=== PATIENT | female | born 1995 | race African-American/Black ===

== ENCOUNTER 2017-03-25 20:41 | Inpatient (IN) | payer MEDICAID, OTHER ==
[2017-03-25] VITALS (11 sets, daily range): BP systolic 105–148; BP diastolic 58–87; PULSE 101–112; RESP 15–16; TEMP 99.3; O2SAT 99–100
[~2017-03-25] VITALS: Ht 157.5 cm; Wt 49.0 kg
[~2017-03-25 20:41] MED LIST: INSU100V SQ; METH-703 OR; PERC5TAB12 PO
[2017-03-25] MEDS ORDERED: PROPOFOL 1000 MG/100 ML INJ 100 ML ONE (20:46)
[2017-03-25] MEDS ORDERED: fentaNYL DRIP 250 ML IV SCH (21:00)
[2017-03-25] MEDS ORDERED: PROPOFOL 1000 MG/100 ML INJ 100 ML IV SCH (21:00)
[2017-03-25] MEDS ORDERED: SODIUM CHLOR 0.9% 1000 ML INJ 1,000 ML IV ONE (21:00)
[2017-03-25] MEDS ORDERED: cefTRIAXone INJ 2,000 MG in SODIUM CHLORIDE 0.9% INJ 100 ML IV STA (21:06)
[2017-03-25] MEDS ORDERED: ETOMIDATE 20 MG/10 ML VIAL IV PUSH ONE (21:15)
[2017-03-25] MEDS ORDERED: VANCOMYCIN INJ 1,150 MG in SODIUM CHLOR 0.9% 250 ML INJ 250 ML IV ONE (21:15)
[2017-03-25] MEDS ORDERED: NALOXONE HCL 0.4 MG/ML AMP IV PUSH ONE (21:15)
[2017-03-25] MEDS ORDERED: VECURONIUM BROMIDE 10 MG VIAL IV PUSH ONE ×2 (21:15→22:30)
[2017-03-25] MEDS ORDERED: DEXAMETHASONE SOD PHOS 20 MG/5 ML VIAL IV PUSH ONE (21:15)
[2017-03-25] MEDS ORDERED: SUCCINYLCHOLINE CHLORIDE 200 MG/10 ML VIAL IV PUSH ONE (21:15)
--- NOTE | 2017-03-25 21:21 | RADRPT ---
EXAM DATE/TIME: 03/25/2017 20:58 [facility] COMPARISON: No previous studies available for comparison. INDICATIONS : Post intubation. MEDICAL HISTORY : Unobtainable. SURGICAL HISTORY : Unobtainable. ENCOUNTER: Initial ACUITY: 1 day PAIN SCORE: Non-responsive. LOCATION: Bilateral chest FINDINGS: Enteric tube is identified and the distal tip at the EG junction, side port overlies the distal esoph rachid. The lungs are clear. Osseous structures are intact. Endotracheal tube tip at the inferior elva n of the clavicles. CONCLUSION: Endotracheal tube and enteric tubes are noted as above. Roge Macias MD on March 25, 2017 at 21:19 Board Certified Radiologist. This report was verified electronically.
--- NOTE | 2017-03-25 21:23 | PD ---
HPI Chief Complaint: Altered Mental Status Time Seen by Provider: 20:56 Travel History International Travel<30 days: No Contact w/Intl Traveler<30days: No Traveled to known affect area: No History of Present Illness HPI Patient is a 21-year-old female with history of type 1 diabetes on insulin, ADHD , asthma, presents to emergency room for altered mental status. As per EMS, patient's family called as patient was last seen normal 4 days ago. Reports that she was found unresponsive in her bed and foaming at the mouth.. EMS reported a BS of 211. Reports that her GSC was a 7 on scene as she was responding to painful stimuli While in the emergency room, patient's GCS is 5. Patient appeared to respond to verbal commands, she had no verbal responses and no response to pain. Blood sugar in the emergency room was 167. Patient obtunded, unable to provide an history of present illness. Patient was given 0.4 mg of Narcan in the emergency room with no response. PFSH Past Medical History ADHD: Yes Asthma: Yes Autoimmune Disease: No Blood Disorders: No Anxiety: No Depression: No Heart Rhythm Problems: No Cancer: No Cardiovascular Problems: No Chest Pain: No Cystic Fibrosis: No Diabetes: Yes Diminished Hearing: No Genitourinary: No Headaches: Yes (now a 10 out of 0-10 scale) Hypertension: No Musculoskeletal: No Neurologic: No Psychiatric: Yes Reproductive: No Immunizations Current: No Migraines: No Seizures: No Sickle Cell Disease: No Sleep Apnea: No Thyroid Disease: No Ulcer: No : 2 Para: 1 Miscarriage: 0 : 0 Past Surgical History Abdominal Surgery: No Appendectomy: No Cardiac Surgery: No Section: Yes Cholecystectomy: No Ear Surgery: No Endocrine Surgery: No Eye Surgery: No Genitourinary Surgery: No Neurologic Surgery: No Oral Surgery: No Pacemaker: No Thoracic Surgery: No Other Surgery: Yes () Social History Alcohol Use: No Tobacco Use: No Substance Use: No Allergies-Medications (Allergen,Severity, Reaction): Coded Allergies: No Known Allergies (Verified , 03/25/17) Reported Meds & Prescriptions Reported Meds & Active Scripts Active Review of Systems ROS Limitations: Altered Mental Status, Unresponsive General / Constitutional: No: Fever Eyes: No: Visual changes HENT: No: Headaches Cardiovascular: No: Chest Pain or Discomfort Respiratory: No: Shortness of Breath Gastrointestinal: No: Abdominal Pain Genitourinary: No: Dysuria Musculoskeletal: No: Pain Skin: No Rash Neurologic: No: Weakness Psychiatric: No: Depression Endocrine: No: Polydipsia Hematologic/Lymphatic: No: Easy Bruising Physical Exam Exam Limitations: Altered Mental Status Narrative GENERAL: Patient in severe distress, GCS of 5 SKIN: Focused skin assessment warm/dry. HEAD: Atraumatic. Normocephalic. EYES: Pupils equal and round. No scleral icterus. No injection or drainage. ENT: No nasal bleeding or discharge. Mucous membranes pink and moist. Patient foaming in the mouth, drooling on exam NECK: Trachea midline. No JVD. CARDIOVASCULAR: Regular rate and rhythm. No murmur appreciated. RESPIRATORY: No accessory muscle use. Clear to auscultation. Breath sounds equal bilaterally. GASTROINTESTINAL: Abdomen soft, non-tender, nondistended. Hepatic and splenic margins not palpable. MUSCULOSKELETAL: No obvious deformities. No clubbing. No cyanosis. No edema. NEUROLOGICAL: Awake, responds to verbal commands, no verbal responses from patient, patient does not respond to painful stimuli. GCS 5 Data Data Last Documented VS Vital Signs Date Time Temp Pulse Resp B/P Pulse Ox O2 Delivery O2 Flow Rate FiO2 03/25/17 21:42 112 16 148/87 100 Ventilator 03/25/17 21:42 70 03/25/17 20:50 99.3 Orders Propofol 1000 Mg/100 Ml Inj (Diprivan 10 (03/25/17 20:46) Chest, Single Ap (03/25/17 20:56) Electrocardiogram (03/25/17 20:57) Complete Blood Count With Diff (03/25/17 20:57) Comprehensive Metabolic Panel (03/25/17 20:57) Beta Hcg (Quant/Titer) (03/25/17 20:57) Prothrombin Time / Inr (Pt) (03/25/17 20:57) Lactic Acid Sepsis Protocol (03/25/17 20:57) Magnesium (Mg) (03/25/17 20:57) Phosphorus (Po4) (03/25/17 20:57) Lipase (03/25/17 20:57) Ckmb (Isoenzyme) Profile (03/25/17 20:57) Troponin I (03/25/17 20:57) Urinalysis - C+S If Indicated (03/25/17 20:57) Influenzae A/B Antigen (03/25/17 20:57) Blood Culture (03/25/17 20:57) Arterial Blood Gas (Abg) (03/25/17 20:57) Courtney-Gastric Tube Insert/Mon (03/25/17 20:58) Continue Black/Suprapubic Cath (03/25/17 20:58) Sodium Chlor 0.9% 1000 Ml Inj (Ns 1000 M (03/25/17 21:00) Ct Brain W/O Iv Contrast(Rout) (03/25/17 20:59) Bedside Glucose PAULA.AC&HS (03/25/17 20:59) Propofol 1000 Mg/100 Ml Inj (Diprivan 10 (03/25/17 21:00) Neurological Rass Scale Q30MX2,Q2HX4,Q4H (03/25/17 20:59) Fentanyl Drip (Fentanyl Drip) (03/25/17 21:00) Etomidate Inj (Amidate Inj) (03/25/17 21:15) Succinylcholine Inj (Quelicin Inj) (03/25/17 21:15) Drug Screen, Random Urine (03/25/17 21:02) Salicylates (Aspirin) (03/25/17 21:02) Act Partial Throm Time (Ptt) (03/25/17 21:03) Bacterial Antigen Csf (03/25/17 21:04) Csf Hsv I/Ii Dna,Pcr (03/25/17 21:04) Csf Cell Count + Differential (03/25/17 21:04) Glucose, Csf (03/25/17 21:04) Total Protein, Csf (03/25/17 21:04) Csf Culture And Gram Stain (03/25/17 21:04) Vecuronium 10 Mg Inj (Norcuron 10 Mg Inj (03/25/17 21:15) Dexamethasone Inj (Decadron Inj) (03/25/17 21:15) Ceftriaxone Inj (Rocephin Inj) (03/25/17 21:06) Vancomycin Inj (Vancomycin Inj) (03/25/17 21:15) Naloxone Inj (Narcan Inj) (03/25/17 21:15) Fentanyl Drip (Fentanyl Drip) (03/25/17 21:55) Tylenol (Acetaminophen) (03/25/17 20:50) Alcohol (Ethanol) (03/25/17 20:50) Beta Hydroxybutyrate (Acetone) (03/25/17 20:50) Potassium Phosphate Inj (Potassium Phosp (03/25/17 22:15) Admit Order (Ed Use Only) (03/25/17 22:15) Midazolam Inj (Versed Inj) (03/25/17 22:15) Labs Laboratory Tests Test 03/25/17 20:50 White Blood Count 4.5 TH/MM3 Red Blood Count 4.50 MIL/MM3 Hemoglobin 13.3 GM/DL Hematocrit 40.5 % Mean Corpuscular Volume 89.9 FL Mean Corpuscular Hemoglobin 29.5 PG Mean Corpuscular Hemoglobin 32.8 % Concent Red Cell Distribution Width 13.8 % Platelet Count 304 TH/MM3 Mean Platelet Volume 8.3 FL Neutrophils (%) (Auto) 71.1 % Lymphocytes (%) (Auto) 23.0 % Monocytes (%) (Auto) 4.8 % Eosinophils (%) (Auto) 0.0 % Basophils (%) (Auto) 1.1 % Neutrophils # (Auto) 3.2 TH/MM3 Lymphocytes # (Auto) 1.0 TH/MM3 Monocytes # (Auto) 0.2 TH/MM3 Eosinophils # (Auto) 0.0 TH/MM3 Basophils # (Auto) 0.0 TH/MM3 CBC Comment DIFF FINAL Differential Comment Prothrombin Time 10.5 SEC Prothromb Time International 1.0 RATIO Ratio Activated Partial 20.4 SEC Thromboplast Time Urine Color YELLOW Urine Turbidity CLEAR Urine pH 5.5 Urine Specific [place] 1.027 Urine Protein 30 mg/dL Urine Glucose (UA) 1000 mg/dL Urine Ketones 150 mg/dL Urine Occult Blood SMALL Urine Nitrite NEG Urine Bilirubin NEG Urine Urobilinogen 2.0 MG/DL Urine Leukocyte Esterase NEG Urine RBC 2 /hpf Urine WBC 1 /hpf Urine Squamous Epithelial <1 /hpf Cells Urine Hyaline Casts 7 /lpf Urine Mucus FEW /lpf Microscopic Urinalysis Comment CATH-CULT NOT IND Sodium Level 142 MEQ/L Potassium Level 3.6 MEQ/L Chloride Level 109 MEQ/L Carbon Dioxide Level 15.0 MEQ/L Anion Gap 18 MEQ/L Blood Urea Nitrogen 14 MG/DL Creatinine 0.99 MG/DL Estimat Glomerular Filtration 85 ML/MIN Rate Random Glucose 180 MG/DL Lactic Acid Level 2.0 mmol/L Calcium Level 8.4 MG/DL Phosphorus Level 1.6 MG/DL Magnesium Level 1.6 MG/DL Total Bilirubin 0.5 MG/DL Aspartate Amino Transf 11 U/L (AST/SGOT) Alanine Aminotransferase 23 U/L (ALT/SGPT) Alkaline Phosphatase 95 U/L Total Creatine Kinase 30 U/L Troponin I LESS THAN 0.02 NG/ML Total Protein 6.5 GM/DL Albumin 3.3 GM/DL Lipase 45 U/L Human Chorionic Gonadotropin, LESS THAN 1 Quant MIU/ML MDM Medical Decision Making Medical Screen Exam Complete: Yes Emergency Medical Condition: Yes Interpretation(s) EKG at 2138: Sinus tach at 107bpm, qt/qtc: 359/422, no acute st or t wave changes Vital Signs Date Time Temp Pulse Resp B/P Pulse Ox O2 Delivery O2 Flow Rate FiO2 03/25/17 20:50 99.3 03/25/17 20:44 101 15 136/87 99 Laboratory Tests Test 03/25/17 20:50 White Blood Count 4.5 TH/MM3 (4.0-11.0) Red Blood Count 4.50 MIL/MM3 (4.00-5.30) Hemoglobin 13.3 GM/DL (11.6-15.3) Hematocrit 40.5 % (35.0-46.0) Mean Corpuscular Volume 89.9 FL (80.0-100.0) Mean Corpuscular Hemoglobin 29.5 PG (27.0-34.0) Mean Corpuscular Hemoglobin 32.8 % Concent (32.0-36.0) Red Cell Distribution Width 13.8 % (11.6-17.2) Platelet Count 304 TH/MM3 (150-450) Mean Platelet Volume 8.3 FL (7.0-11.0) Neutrophils (%) (Auto) 71.1 % (16.0-70.0) Lymphocytes (%) (Auto) 23.0 % (9.0-44.0) Monocytes (%) (Auto) 4.8 % (0.0-8.0) Eosinophils (%) (Auto) 0.0 % (0.0-4.0) Basophils (%) (Auto) 1.1 % (0.0-2.0) Neutrophils # (Auto) 3.2 TH/MM3 (1.8-7.7) Lymphocytes # (Auto) 1.0 TH/MM3 (1.0-4.8) Monocytes # (Auto) 0.2 TH/MM3 (0-0.9) Eosinophils # (Auto) 0.0 TH/MM3 (0-0.4) Basophils # (Auto) 0.0 TH/MM3 (0-0.2) CBC Comment DIFF FINAL Differential Comment Prothrombin Time 10.5 SEC (9.8-11.6) Prothromb Time International 1.0 RATIO Ratio Activated Partial 20.4 SEC Thromboplast Time (24.3-30.1) Urine Color YELLOW (YELLW/STRAW) Urine Turbidity CLEAR (CLEAR) Urine pH 5.5 (5.0-8.5) Urine Specific [place] 1.027 (1.002-1.035) Urine Protein 30 mg/dL (NEG-TRACE) Urine Glucose (UA) 1000 mg/dL (NEG) Urine Ketones 150 mg/dL (NEG) Urine Occult Blood SMALL (NEG) Urine Nitrite NEG (NEG) Urine Bilirubin NEG (NEG) Urine Urobilinogen 2.0 MG/DL (LESS THAN 2.0) Urine Leukocyte Esterase NEG (NEG) Urine RBC 2 /hpf (0-3) Urine WBC 1 /hpf (0-5) Urine Squamous Epithelial <1 /hpf (0-5) Cells Urine Hyaline Casts 7 /lpf (RARE) Urine Mucus FEW /lpf (OCC) Microscopic Urinalysis Comment CATH-CULT NOT IND Sodium Level 142 MEQ/L (136-145) Potassium Level 3.6 MEQ/L (3.5-5.1) Chloride Level 109 MEQ/L (98-107) Carbon Dioxide Level 15.0 MEQ/L (21.0-32.0) Anion Gap 18 MEQ/L (5-15) Blood Urea Nitrogen 14 MG/DL (7-18) Creatinine 0.99 MG/DL (0.50-1.00) Estimat Glomerular Filtration 85 ML/MIN (>89) Rate Random Glucose 180 MG/DL (74-106) Lactic Acid Level 2.0 mmol/L (0.4-2.0) Calcium Level 8.4 MG/DL (8.5-10.1) Phosphorus Level 1.6 MG/DL (2.5-4.9) Magnesium Level 1.6 MG/DL (1.5-2.5) Total Bilirubin 0.5 MG/DL (0.2-1.0) Aspartate Amino Transf 11 U/L (15-37) (AST/SGOT) Alanine Aminotransferase 23 U/L (10-53) (ALT/SGPT) Alkaline Phosphatase 95 U/L (45-117) Total Creatine Kinase 30 U/L (26-192) Troponin I LESS THAN 0.02 NG/ML (0.02-0.05) Total Protein 6.5 GM/DL (6.4-8.2) Albumin 3.3 GM/DL (3.4-5.0) Lipase 45 U/L (73-393) Human Chorionic Gonadotropin, LESS THAN 1 Quant MIU/ML (0-5) Last Impressions Head CT 03/25/172058 Signed Impressions: Service Date/Time: Saturday, March 25, 2017 21:23 - CONCLUSION: Normal examination. Roge Macias MD Chest X-Ray 03/25/172055 Signed Impressions: Service Date/Time: Saturday, March 25, 2017 20:58 - CONCLUSION: Endotracheal tube and enteric tubes are noted as above. Roge Macias MD Differential Diagnosis Differential includes DKA, encephalitis, meningitis, drug abuse, electrolyte abnormality, seizure Narrative Course 21-year-old female who presents to emergency room with complaints of altered mental status. She initially presented to the emergency room with a GCS of 5, patient was intubated for airway protection. Patient has known history of diabetes mellitus type 1, blood glucose in the ER was 167. Patient unable to provide any history at this time. Patient was given 0.4mg of narcan with no response. GCS 5 - patient intubated for airway protection Patient was sedated using RSI 5, patient was given etomidate and succinylcholine. Patient was bolus of propofol for sedation, propofol drip was initiated for sedation. Patient was still biting at the ETT, patient was given 10mg of vecuronium along with propofol as Fentyl gtt was ordered and is currently being prepared by pharmacy. CT of the head ordered for evaluation of altered mental status. Lab work including blood cultures as well as lactic acid ordered. Patient was given antibiotics for possible meningitis - dexamethasone, vanco and rocephin ordered. Will perform LP after CT of head Last Impressions Head CT 03/25/172058 Signed Impressions: Service Date/Time: Saturday, March 25, 2017 21:23 - CONCLUSION: Normal examination. Roge Macias MD Chest X-Ray 03/25/172055 Signed Impressions: Service Date/Time: Saturday, March 25, 2017 20:58 - CONCLUSION: Endotracheal tube and enteric tubes are noted as above. Roge Macias MD Laboratory Tests Test 03/25/17 20:50 White Blood Count 4.5 TH/MM3 (4.0-11.0) Red Blood Count 4.50 MIL/MM3 (4.00-5.30) Hemoglobin 13.3 GM/DL (11.6-15.3) Hematocrit 40.5 % (35.0-46.0) Mean Corpuscular Volume 89.9 FL (80.0-100.0) Mean Corpuscular Hemoglobin 29.5 PG (27.0-34.0) Mean Corpuscular Hemoglobin 32.8 % Concent (32.0-36.0) Red Cell Distribution Width 13.8 % (11.6-17.2) Platelet Count 304 TH/MM3 (150-450) Mean Platelet Volume 8.3 FL (7.0-11.0) Neutrophils (%) (Auto) 71.1 % (16.0-70.0) Lymphocytes (%) (Auto) 23.0 % (9.0-44.0) Monocytes (%) (Auto) 4.8 % (0.0-8.0) Eosinophils (%) (Auto) 0.0 % (0.0-4.0) Basophils (%) (Auto) 1.1 % (0.0-2.0) Neutrophils # (Auto) 3.2 TH/MM3 (1.8-7.7) Lymphocytes # (Auto) 1.0 TH/MM3 (1.0-4.8) Monocytes # (Auto) 0.2 TH/MM3 (0-0.9) Eosinophils # (Auto) 0.0 TH/MM3 (0-0.4) Basophils # (Auto) 0.0 TH/MM3 (0-0.2) CBC Comment DIFF FINAL Differential Comment Prothrombin Time 10.5 SEC (9.8-11.6) Prothromb Time International 1.0 RATIO Ratio Activated Partial 20.4 SEC Thromboplast Time (24.3-30.1) Urine Color YELLOW (YELLW/STRAW) Urine Turbidity CLEAR (CLEAR) Urine pH 5.5 (5.0-8.5) Urine Specific [place] 1.027 (1.002-1.035) Urine Protein 30 mg/dL (NEG-TRACE) Urine Glucose (UA) 1000 mg/dL (NEG) Urine Ketones 150 mg/dL (NEG) Urine Occult Blood SMALL (NEG) Urine Nitrite NEG (NEG) Urine Bilirubin NEG (NEG) Urine Urobilinogen 2.0 MG/DL (LESS THAN 2.0) Urine Leukocyte Esterase NEG (NEG) Urine RBC 2 /hpf (0-3) Urine WBC 1 /hpf (0-5) Urine Squamous Epithelial <1 /hpf (0-5) Cells Urine Hyaline Casts 7 /lpf (RARE) Urine Mucus FEW /lpf (OCC) Microscopic Urinalysis Comment CATH-CULT NOT IND Sodium Level 142 MEQ/L (136-145) Potassium Level 3.6 MEQ/L (3.5-5.1) Chloride Level 109 MEQ/L (98-107) Carbon Dioxide Level 15.0 MEQ/L (21.0-32.0) Anion Gap 18 MEQ/L (5-15) Blood Urea Nitrogen 14 MG/DL (7-18) Creatinine 0.99 MG/DL (0.50-1.00) Estimat Glomerular Filtration 85 ML/MIN (>89) Rate Random Glucose 180 MG/DL (74-106) Lactic Acid Level 2.0 mmol/L (0.4-2.0) Calcium Level 8.4 MG/DL (8.5-10.1) Phosphorus Level 1.6 MG/DL (2.5-4.9) Magnesium Level 1.6 MG/DL (1.5-2.5) Total Bilirubin 0.5 MG/DL (0.2-1.0) Aspartate Amino Transf 11 U/L (15-37) (AST/SGOT) Alanine Aminotransferase 23 U/L (10-53) (ALT/SGPT) Alkaline Phosphatase 95 U/L (45-117) Total Creatine Kinase 30 U/L (26-192) Troponin I LESS THAN 0.02 NG/ML (0.02-0.05) Total Protein 6.5 GM/DL (6.4-8.2) Albumin 3.3 GM/DL (3.4-5.0) Lipase 45 U/L (73-393) Human Chorionic Gonadotropin, LESS THAN 1 Quant MIU/ML (0-5) LP performed, patient with clear CSF fluid - CSF pending Case reviewed with Dr. Macdonald who accepts pt to service Critical Care Narrative Aggregate critical care time was 45 minutes. Time to perform other separately billable procedures was not included in the critical care time. My time did not include minutes spent treating any other patients simultaneously or on activities that did not directly contribute to the patient's treatment. The services I provided to this patient were to treat and/or prevent clinically significant deterioration that could result in: , decompensation, deterioration I provided critical care services requiring my management, as noted below: Chart data review, documentation time, medication orders and management, vital sign assessments/reviewing monitor data, ordering and reviewing lab tests, ordering and interpreting/reviewing x-rays and diagnostic studies, care of the patient and discussion of the patient with the admitting physicians. Procedures Procedure Narrative After the risks and benefits were discussed the following procedure was performed: INTUBATION: The patient was put in optimal position for the procedure. Rapid sequence intubation was initiated by me using 20 milligrams of etomidate IV and 100 milligrams of succinylcholine IV. The patient was intubated with a 7.5 cuffed endotracheal tube. Tube placement was confirmed by visualization of the tube and balloon passing through the cords, capnometry and subsequent chest x-ray. Breath sounds were equal and well aerated bilaterally postintubation. No breath sounds over stomach. Patient tolerated procedure well. LUMBAR PUNCTURE: The patient was placed in the left lateral decubitus position. The lumbar area of the back was prepped with Betadine and sterilely draped. The L3 -- L4 interspace was infiltrated with 1% lidocaine plain. Number 20 gauge LP needle was placed in the interspace. Opening pressure deferred. Number 5 milliliters of clear CSF were obtained. Patient tolerated procedure well. Diagnosis Primary Impression: Altered mental status, unspecified Additional Impression: Ventilator dependence Admitting Information Admitting Physician Requests: Yuly Sosa DO Mar 25, 2017 21:23
[2017-03-25 21:24] LABS: AUTOMATED NEUTROPHIL # 3.2 TH/MM3 (1.8-7.7); BASOPHIL % 1.1 % (0.0-2.0); HEMATOCRIT 40.5 % (35.0-46.0); HEMO FLAGS DIFF FINAL; MEAN CELL VOLUME 89.9 FL (80.0-100.0); MEAN CORPUSCULAR HEMOGLOBIN 29.5 PG (27.0-34.0); MEAN CORPUSCULAR HGB CONC 32.8 % (32.0-36.0); MONO % 4.8 % (0.0-8.0); NEUT % 71.1 % (16.0-70.0); PLATELET COUNT 304 TH/MM3 (150-450); RED CELL DISTRIBUTION WIDTH 13.8 % (11.6-17.2); WHITE BLOOD COUNT 4.5 TH/MM3 (4.0-11.0)
[2017-03-25 21:26] LABS: BLOOD, URINE SMALL (NEG); GLUCOSE,URINE 1000 mg/dL (NEG); HYALINE CAST, URINE 7 /lpf (RARE); KETONE, URINE 150 mg/dL (NEG); MUCUS URINE FEW /lpf (OCC); NITRITE,URINE NEG (NEG); PH, URINE 5.5 (5.0-8.5); SQUAMOUS EPITHELIAL CELL URINE <1 /hpf (0-5); URINE COLOR YELLOW (YELLW/STRAW)
[2017-03-25 21:29] LABS: COMMENT (UR) CATH-CULT NOT IND; CULTURE IF INDICATED CATH CULTURE NOT IND
[2017-03-25 21:30] LABS: PROTHROMBIN TIME - PATIENT 10.5 SEC (9.8-11.6)
--- NOTE | 2017-03-25 21:41 | RADRPT ---
EXAM DATE/TIME: 03/25/2017 21:23 [facility] COMPARISON: No previous studies available for comparison. INDICATIONS : Unresponsive. RADIATION DOSE: 32.14 CTDIvol (mGy) MEDICAL HISTORY : Non-responsive. SURGICAL HISTORY : Non-responsive. ENCOUNTER: Initial ACUITY: 1 day PAIN SCALE: Non-responsive LOCATION: cranial TECHNIQUE: Multiple contiguous axial images were obtained of the head. Using automated exposure control and adj ustment of the mA and/or kV according to patient size, radiation dose was kept as low as reasonably a chievable to obtain optimal diagnostic quality images. DICOM format image data is available electro nically for review and comparison. FINDINGS: CEREBRUM: The ventricles are normal for age. No evidence of midline shift, mass lesion, hemorrhage or acute in farction. No extra-axial fluid collections are seen. POSTERIOR FOSSA: The cerebellum and brainstem are intact. The 4th ventricle is midline. The cerebellopontine angle i s unremarkable. EXTRACRANIAL: The visualized portion of the orbits is intact. SKULL: The calvaria is intact. No evidence of skull fracture. CONCLUSION: Normal examination. Roge Macias MD on March 25, 2017 at 21:39 Board Certified Radiologist. This report was verified electronically.
[2017-03-25 21:44] LABS: ANION GAP 18 MEQ/L (5-15); BLOOD UREA NITROGEN 14 MG/DL (7-18); CHLORIDE 109 MEQ/L (98-107); GLOMERULAR FILTRATION RATE 85 ML/MIN (>89); MAGNESIUM 1.6 MG/DL (1.5-2.5); POTASSIUM 3.6 MEQ/L (3.5-5.1); SODIUM (NA) 142 MEQ/L (136-145)
[2017-03-25 21:45] LABS: AST (GOT) 11 U/L (15-37)
[2017-03-25 21:48] LABS: APTT (PATIENT) 20.4 SEC (24.3-30.1)
[2017-03-25 21:50] LABS: ALKALINE PHOSPHATASE 95 U/L (45-117); ALT (GPT) 23 U/L (10-53); BETA HCG QUANT LESS THAN 1 MIU/ML (0-5); TOTAL BILIRUBIN ADULT 0.5 MG/DL (0.2-1.0)
[2017-03-25] MEDS ORDERED: fentaNYL DRIP 250 ML ONE (21:55)
[2017-03-25 21:56] LABS: CREATINE KINASE 30 U/L (26-192)
[2017-03-25] MEDS ORDERED: MIDAZOLAM HCL 2 MG/2 ML VIAL IV PUSH ONE (22:15)
[2017-03-25] MEDS ORDERED: POTASSIUM PHOSPHATE INJ 30 MMOL in SODIUM CHLOR 0.9% 250 ML INJ 250 ML IV ONE (22:15)
[2017-03-25 22:16] LABS: ACETAMINOPHEN LESS THAN 2.0 MCG/ML (10.0-30.0)
[2017-03-25 22:26] LABS: BETA-HYDROXYBUTYRATE 6.38 MMOL/L (0.00-0.39)
[2017-03-25 22:32] LABS: AMPHETAMINE, URINE NEG (NEG); BARBITURATES, URINE NEG (NEG); COCAINE, URINE NEG (NEG)
[2017-03-25] MEDS: SODIUM CHLOR 0.9% 1000 ML INJ 1,000 ML IV SCH ×2 (22:50→23:50)
[2017-03-25] MEDS ORDERED: INSULIN REGULAR (IV INFUSION) 100 UNITS in SODIUM CHLORIDE 0.9% INJ 99 ML IV SCH (23:00)
[2017-03-25] MEDS ORDERED: MISCELLANEOUS NURSING INFORMATION XX SCH (23:00)
[2017-03-25] MEDS ORDERED: CHLORHEXIDINE GLUCONATE 2 % 1 PACK (2 CLOTHS) TOP PRN (23:00)
[2017-03-25] MEDS ORDERED: POTASSIUM CHLOR 20 MEQ PREMIX 100 ML IV PRN ×6 (23:00)
[2017-03-25] MEDS ORDERED: SODIUM PHOSPHATE INJ 15 MMOL in SODIUM CHLORIDE 0.9% INJ 100 ML IV PRN (23:00)
[2017-03-25] MEDS ORDERED: POTASSIUM CHLOR 40 MEQ PREMIX 100 ML IV PRN ×2 (23:00)
[2017-03-25] MEDS ORDERED: SODIUM BICARBONATE 8.4% SOLN 50 MEQ/50 ML VIAL IV PRN ×2 (23:00)
--- NOTE | 2017-03-25 23:09 | HHI.HP ---
HPI Service Critical Care Medicine Primary Care Physician No Primary Care Physician Admission Diagnosis Vent Dependence Respiratory Failure, Altered Mental Status Diagnosis: Travel History International Travel<30 Days: No Contact w/Intl Traveler <30 Da: No Traveled to Known Affected Are: No History of Present Illness 21-year-old female with history of type 1 diabetes on insulin, ADHD, asthma, presents to emergency room for altered mental status. As per EMS, patient's family called as patient was last seen normal 4 days ago. Reports that she was found unresponsive in her bed and foaming at the mouth.. EMS reported a BS of 211. Reports that her GSC was a 7 on scene as she was responding to painful stimuli. In the emergency department patient's GCS was 5 and she was intubated for an airway protection by ED attending. Review of Systems ROS Unobtainable patient is sedated and intubated Past Family Social History Allergies: Coded Allergies: No Known Allergies (Verified , 03/25/17) Past Medical History Type 1 diabetes mellitus since age of 6 Asthma ADHD Past Surgical History 8 years ago Reported Medications Reported Meds & Active Scripts Active Active Ordered Medications Current Medications Medications (Trade) Dose Ordered Sig/Justyn Route PRN Reason Start Time Stop Time Status Last Admin Dose Admin Propofol 100 ml @ 0 mls/hr TITRATE IV 03/25/17 21:00 Fentanyl Citrate 250 ml @ 0 mls/hr TITRATE IV 03/25/17 21:00 Sodium Chloride 1,000 ml @ 250 mls/hr Q4H IV 03/25/17 22:50 Dextrose/Sodium Chloride 1,000 ml @ 200 mls/hr Q5H IV 03/25/17 22:50 03/26/17 03:50 Insulin Human Regular 100 units/ Sodium Chloride 100 ml @ 0 mls/hr TITRATE IV 03/25/17 23:00 Potassium Chloride 100 ml @ 100 mls/hr Q1H PRN IV SEE LABEL COMMENTS 03/25/17 23:00 Potassium Chloride 100 ml @ 50 mls/hr Q2H PRN IV SEE LABEL COMMENTS 03/25/17 23:00 Potassium Chloride 100 ml @ 100 mls/hr Q1H PRN IV SEE LABEL COMMENTS 03/25/17 23:00 Potassium Chloride 100 ml @ 100 mls/hr Q1H PRN IV SEE LABEL COMMENTS 03/25/17 23:00 Potassium Chloride 100 ml @ 50 mls/hr Q2H PRN IV SEE LABEL COMMENTS 03/25/17 23:00 Potassium Chloride 100 ml @ 50 mls/hr Q2H PRN IV SEE LABEL COMMENTS 03/25/17 23:00 Potassium Chloride 100 ml @ 50 mls/hr Q2H PRN IV SEE LABEL COMMENTS 03/25/17 23:00 Potassium Chloride (KCl 20 Meq Premix Inj) 100 ml @ 50 mls/hr Q2H PRN IV SEE LABEL COMMENTS 03/25/17 23:00 Sodium Bicarbonate (Sodium Bicarbonate 8.4% Inj) 100 meq UNSCH PRN IV SEE LABEL COMMENTS 03/25/17 23:00 Sodium Bicarbonate 50 meq 50 meq UNSCH PRN IV SEE LABEL COMMENTS 03/25/17 23:00 Sodium Phosphate/ Sodium Chloride (Sodium Phosphate Inj/NS Inj) 105 ml @ 25 mls/hr UNSCH PRN IV SEE LABEL COMMENTS 03/25/17 23:00 Miscellaneous Information 1 Q361D XX 03/25/17 23:00 Chlorhexidine Gluconate (Chlorhexidine 2% Cloth) 3 pack Taper DAILY@04 TOP 03/26/17 04:00 03/22/18 03:59 03/26/17 04:00 Chlorhexidine Gluconate (Chlorhexidine 2% Cloth) 3 pack UNSCH PRN TOP HYGIENIC CARE 03/25/17 23:00 Acetaminophen (Tylenol) 650 mg Q4H PRN PO pain 03/26/17 04:00 03/26/17 04:14 Family History Unobtainable Social History Unobtainable Physical Exam Vital Signs Vital Signs Date Time Temp Pulse Resp B/P Pulse Ox O2 Delivery O2 Flow Rate FiO2 03/25/17 23:06 110 105/58 03/25/17 22:39 112 16 118/67 100 Ventilator 03/25/17 22:32 110 16 123/64 100 Ventilator 03/25/17 21:50 100 70 03/25/17 21:42 112 16 148/87 100 Ventilator 03/25/17 21:42 70 03/25/17 21:15 110 16 134/73 100 Ventilator 03/25/17 20:50 99.3 03/25/17 20:44 101 15 136/87 99 Physical Exam GENERAL: Well-nourished, well-developed patient. Sedated and intubated SKIN: Warm and dry. HEAD: Normocephalic. EYES: No scleral icterus. No injection or drainage. NECK: Supple, trachea midline. No JVD or lymphadenopathy. CARDIOVASCULAR: Regular rate and rhythm without murmurs, gallops, or rubs. RESPIRATORY: Breath sounds equal bilaterally. No accessory muscle use. GASTROINTESTINAL: Abdomen soft, non-tender, nondistended. MUSCULOSKELETAL: No cyanosis, or edema. BACK: Nontender without obvious deformity. No CVA tenderness. EXTREMITIES: No clubbing cyanosis or edema Laboratory Laboratory Tests Test 03/25/17 03/25/17 20:50 21:50 White Blood Count 4.5 Red Blood Count 4.50 Hemoglobin 13.3 Hematocrit 40.5 Mean Corpuscular Volume 89.9 Mean Corpuscular Hemoglobin 29.5 Mean Corpuscular Hemoglobin 32.8 Concent Red Cell Distribution Width 13.8 Platelet Count 304 Mean Platelet Volume 8.3 Neutrophils (%) (Auto) 71.1 Lymphocytes (%) (Auto) 23.0 Monocytes (%) (Auto) 4.8 Eosinophils (%) (Auto) 0.0 Basophils (%) (Auto) 1.1 Neutrophils # (Auto) 3.2 Lymphocytes # (Auto) 1.0 Monocytes # (Auto) 0.2 Eosinophils # (Auto) 0.0 Basophils # (Auto) 0.0 CBC Comment DIFF FINAL Differential Comment Prothrombin Time 10.5 Prothromb Time International 1.0 Ratio Activated Partial 20.4 Thromboplast Time Urine Color YELLOW Urine Turbidity CLEAR Urine pH 5.5 Urine Specific [place] 1.027 Urine Protein 30 Urine Glucose (UA) 1000 Urine Ketones 150 Urine Occult Blood SMALL Urine Nitrite NEG Urine Bilirubin NEG Urine Urobilinogen 2.0 Urine Leukocyte Esterase NEG Urine RBC 2 Urine WBC 1 Urine Squamous Epithelial <1 Cells Urine Hyaline Casts 7 Urine Mucus FEW Microscopic Urinalysis Comment CATH-CULT NOT IND Sodium Level 142 Potassium Level 3.6 Chloride Level 109 Carbon Dioxide Level 15.0 Anion Gap 18 Blood Urea Nitrogen 14 Creatinine 0.99 Estimat Glomerular Filtration 85 Rate Random Glucose 180 Lactic Acid Level 2.0 Calcium Level 8.4 Phosphorus Level 1.6 Magnesium Level 1.6 Total Bilirubin 0.5 Aspartate Amino Transf 11 (AST/SGOT) Alanine Aminotransferase 23 (ALT/SGPT) Alkaline Phosphatase 95 Total Creatine Kinase 30 Troponin I LESS THAN 0.02 Total Protein 6.5 Albumin 3.3 Lipase 45 Human Chorionic Gonadotropin, LESS THAN 1 Quant Urine Opiates Screen NEG Acetaminophen Level LESS THAN 2.0 Urine Barbiturates Screen NEG Urine Amphetamines Screen NEG Urine Benzodiazepines Screen NEG Urine Cocaine Screen NEG Urine Cannabinoids Screen NEG Ethyl Alcohol Level LESS THAN 3 B-Hydroxybutyrate 6.38 CSF Glucose 179 CSF Total Protein 80.3 Date/Time Procedure Status Source Growth 03/25/17 22:10 Aerobic Blood Culture Received Blood Peripheral Pending 03/25/17 22:10 Anaerobic Blood Culture Received Blood Peripheral Pending 03/25/17 21:50 Gram Stain - Final Resulted Cerebral Spinal Fluid Lumbar Puncture 03/25/17 21:50 CSF Culture Resulted Cerebral Spinal Fluid Lumbar Puncture Pending Result Diagram: 03/25/17204903/25/172049 Imaging Last [address] 03/25/172058 Signed Impressions: Service Date/Time: Saturday, March 25, 2017 21:23 - CONCLUSION: Normal examination. Roge Macias MD Chest X-Ray 03/25/172055 Signed Impressions: Service Date/Time: Saturday, March 25, 2017 20:58 - CONCLUSION: Endotracheal tube and enteric tubes are noted as above. Roge Macias MD Assessment and Plan Assessment and Plan Respiratory failure - Intubated for an airway protection - SBT and weaning trial when altered mental status improves - DuoNeb when necessary - Chest x-ray and ABG a.m. Altered mental status - CT head negative - Urine drug screen - Neuro checks in the ICU Diabetes mellitus - Insulin drip protocol - Transition to long-acting insulin subcutaneous sliding scale Asthma - No exacerbation - DuoNeb's when necessary ADHD - Psych consult when extubated DVT GI prophylaxis - Subcutaneous heparin Pepcid - Teds and SCDs Critical Care: The total critical care time was 35 minutes. Time to perform other separately billable procedures was not included in the critical care time. Mark Macdonald MD Mar 25, 2017 23:09
[2017-03-25 23:38] LABS: CSF LYMPHOCYTES 61 %; CSF MONOCYTES 39 %; CSF NEUTROPHILS 0 %; GROSS BLOOD TUBE #1 TRACE (0); GROSS BLOOD TUBE #2 0 (0); GROSS BLOOD TUBE #3 0 (0); GROSS BLOOD TUBE #4 0 (0); SUPERNATE COLOR TUBE #1 CLEAR (CLEAR); SUPERNATE COLOR TUBE #2 CLEAR (CLEAR); SUPERNATE COLOR TUBE #3 CLEAR (CLEAR); SUPERNATE COLOR TUBE #4 CLEAR (CLEAR); VOLUME TUBE # 1 1.2 ML; VOLUME TUBE # 2 1.2 ML; VOLUME TUBE # 3 0.9 ML; WBC TUBE #4 5 /MM3 (0-10)
[2017-03-26] VITALS (33 sets, daily range): BP systolic 96–130; BP diastolic 51–76; PULSE 90–128; RESP 17–92; TEMP 98.4–99.4; O2SAT 97–100
[2017-03-26] MEDS: SODIUM CHLOR 0.9% 1000 ML INJ 1,000 ML IV SCH ×5 (00:58→14:50)
[2017-03-26 01:13] LABS: BLOOD GAS CARBOXYHEMOGLOBIN 1.1 % (0-4); BLOOD GAS HCO3 13 mmol/L (22-26); BLOOD GAS METHEMOGLOBIN 0.6 % (0-2); BLOOD GAS O2 HGB SATURATION 98 % (90-100); BLOOD GAS OXYGEN CONTENT 18.3 Vol % (12.0-20.0); BLOOD GAS PCO2 29 mmHg (38-42); BLOOD GAS PO2 344 mmHG (61-120); BLOOD GAS TOTAL HGB 12.7 G/DL (12.0-16.0); TEMP CORR TO 98.6
[2017-03-26 01:14] LABS: CRITICAL VALUE YES; DRAW SITE LT RADIAL; FIO2 70 %; NUMBER OF ARTERIAL PUNCTURES 1; OXYGEN DEVICE VENTILATOR; STAT YES; ULNAR PULSE PRESENT; VENT SETTINGS AC/16/450/PEEP5
[2017-03-26] MEDS: DEXT 5%-NACL 0.9% 1000 ML INJ 1,000 ML IV SCH ×5 (01:24→17:09)
[2017-03-26] MEDS: CHLORHEXIDINE GLUCONATE 2 % 1 PACK (2 CLOTHS) TOP SCH (04:00)
[2017-03-26] MEDS: ACETAMINOPHEN 325 MG TAB PO PRN (04:14)
[2017-03-26 06:08] LABS: BICARBONATE 11.5 MEQ/L (21.0-32.0); MAGNESIUM 1.6 MG/DL (1.5-2.5)
[2017-03-26] MEDS: diphenhydrAMINE HCL 50 MG/ML VIAL IV PUSH PRN ×2 (08:38→15:37)
--- NOTE | 2017-03-26 08:42 | HHI.CCPN ---
Subjective Remarks/Hospital Course Hospital Course: 21-year-old female with history of type 1 diabetes on insulin, ADHD, asthma, presents to emergency room for altered mental status. As per EMS, patient's family called as patient was last seen normal 4 days ago. Reports that she was found unresponsive in her bed and foaming at the mouth.. EMS reported a BS of 211. Reports that her GSC was a 7 on scene as she was responding to painful stimuli. In the emergency department patient's GCS was 5 and she was intubated for an airway protection by ED attending. Subjective: 03/26: patient extubated early this morning and her mental status is back to baseline. CSF NG overnight and Gram stain negative. glucose appropriate, although protein slightly elevated. however, acidosis significantly worse. patient complains of nausea. blood glucose is now >400 mg/dL. clinically in worsening DKA. Objective Vital Signs Date Time Temp Pulse Resp B/P Pulse Ox O2 Delivery O2 Flow Rate FiO2 03/26/17 06:00 92 03/26/17 05:14 18 03/26/17 02:00 98 Nasal Cannula 2 03/26/17 01:35 40 03/25/17 23:06 105/58 03/25/17 20:50 99.3 Result Diagram: 03/25/17204903/26/17 0420 Other Results Laboratory Tests Test 03/25/17 22:04 Blood Gas Puncture Site LT RADIAL Blood Gas Patient Temperature 98.6 Blood Gas HCO3 13 mmol/L (22-26) Blood Gas Base Excess -13.0 mmol/L (-2-2) Blood Gas Oxygen Saturation 98 % (90-100) Arterial Blood pH 7.26 (7.380-7.420) Arterial Blood Partial 29 mmHg (38-42) Pressure CO2 Arterial Blood Partial 344 mmHG Pressure O2 (61-120) Arterial Blood Oxygen Content 18.3 Vol % (12.0-20.0) Arterial Blood 1.1 % (0-4) Carboxyhemoglobin Arterial Blood Methemoglobin 0.6 % (0-2) Blood Gas Hemoglobin 12.7 G/DL (12.0-16.0) Oxygen Delivery Device VENTILATOR Blood Gas Ventilator Setting AC/16/450/PEEP5 Blood Gas Inspired Oxygen 70 % Imaging Last [address] 03/25/172058 Signed Impressions: Service Date/Time: Saturday, March 25, 2017 21:23 - CONCLUSION: Normal examination. Roge Macias MD Chest X-Ray 03/25/172055 Signed Impressions: Service Date/Time: Saturday, March 25, 2017 20:58 - CONCLUSION: Endotracheal tube and enteric tubes are noted as above. Roge Macias MD Objective Remarks GENERAL: young female, critically ill, in distress SKIN: Warm and dry. HEAD: Normocephalic. EYES: No scleral icterus. No injection or drainage. NECK: trachea midline. No JVD. CARDIOVASCULAR: Regular rate and rhythm. sinus by tele. RESPIRATORY: equal chest rise. GASTROINTESTINAL: Abdomen soft, non-tender, nondistended. no guarding. MUSCULOSKELETAL: No cyanosis, or edema. EXTREMITIES: No clubbing cyanosis or edema Neuro: RASS 0. CAM -. alert and oriented x 3. no focal deficits. no meningismus. A/P Assessment and Plan Assessment: 21yF type 1 diabetic originally admitted for altered mental status and concern for possible meningitis, whose mental status has improved, however, now has evidence of worsening diabetic ketoacidosis with a widening anion gap, uncontrolled blood glucose, clinical symptoms of nausea. Clearly remains critically ill now in worsening DKA. will start DKA protocol with insulin infusion, serial labs, ivf hydration. from an altered mental status standpoint, wbc normal, afebrile, and without any evidence of meningitis. will f/u full culture data, but will not continue abx at this time unless we have other evidence of infectious etiology. Respiratory failure- resolved. 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 - aggressive pulm toilet - oob with assist, PT consult. Altered mental status- resolved. - CT head negative - Urine drug screen - CSF Gram stain negative and initial growth NGTD - stop empiric abx, low current suspicion for meningitis - altered mental status likely secondary to DKA Diabetic Keto-Acidosis- worsening - DKA protocol insulin drip - serial labs - iv hydration Asthma - No exacerbation - DuoNeb's when necessary ADHD - Psych consult when extubated DVT GI prophylaxis - Subcutaneous heparin Pepcid - Teds and SCDs Dispo: remain in ICU with worsening DKA. Critical Care: The total critical care time was 47 minutes. Time to perform other separately billable procedures was not included in the critical care time. Andreas Ferrara MD Mar 26, 2017 08:42
[2017-03-26 10:43] LABS: ANION GAP 26 MEQ/L (5-15); BETA-HYDROXYBUTYRATE 13.05 MMOL/L (0.00-0.39); BICARBONATE LESS THAN 5.0 MEQ/L (21.0-32.0); BLOOD UREA NITROGEN 5 MG/DL (7-18); CHLORIDE 109 MEQ/L (98-107); GLOMERULAR FILTRATION RATE 94 ML/MIN (>89); MAGNESIUM 1.6 MG/DL (1.5-2.5); SODIUM (NA) 140 MEQ/L (136-145)
--- NOTE | 2017-03-26 12:13 | EKG ---
Date Performed: 03/25/2017 Time Performed: 21:38:53 PTAGE: 21 years EKG: SINUS TACHYCARDIA NONSPECIFIC T-WAVE ABNORMALITY CONSIDER ANTERIOR ISCHEMIA SUSPECT T WAVE CHANGES ARE DUE TO BASELINE WANDER AND ARTIFACT CLINICAL CORRELATION RECOMMENDED ABNORMAL RHYTHM ECG PREVIOUS TRACING : 03/20/2013 04.16 DOCTOR: Chava Lantigua Interpretating Date/Time 03/26/2017 12:11:05
[2017-03-26 18:51] LABS: MAGNESIUM 1.6 MG/DL (1.5-2.5); POTASSIUM 3.9 MEQ/L (3.5-5.1)
[2017-03-26] MEDS ORDERED: INSULIN DETEMIR 100 UNITS/ML VIAL SQ SCH (21:00)
[2017-03-26] MEDS ORDERED: DC previous DKA orders (HMC 1917) ONE (22:15)
[2017-03-26] MEDS ORDERED: GLUCAGON 1 MG/ML VIAL OTHER PRN (22:15)
[2017-03-26] MEDS ORDERED: DC Insulin drip 2 hrs post basal insulin dose ONE (22:15)
[2017-03-26] MEDS ORDERED: DEXTROSE 50% IN WATER 50 ML VIAL(D50) IV PRN (22:15)
[2017-03-26 23:02] LABS: BETA-HYDROXYBUTYRATE 2.14 MMOL/L (0.00-0.39); BICARBONATE 18.9 MEQ/L (21.0-32.0); MAGNESIUM 1.5 MG/DL (1.5-2.5)
[2017-03-26 23:06] LABS: POTASSIUM 2.8 MEQ/L (3.5-5.1)
[2017-03-27] VITALS (16 sets, daily range): BP systolic 97–118; BP diastolic 58–81; PULSE 71–99; RESP 16–22; TEMP 98.1–99.3; O2SAT 95–100
[2017-03-27] MEDS ORDERED: POTASSIUM PHOSPHATE MONOBASIC 500 MG TAB PO PRN
[2017-03-27] MEDS ORDERED: POTASSIUM CHLOR 40 MEQ PREMIX 100 ML IV PRN ×2
[2017-03-27] MEDS ORDERED: MAGNESIUM OXIDE 400 MG TAB PO PRN
[2017-03-27] MEDS ORDERED: POTASSIUM CHLOR 20 MEQ PREMIX 100 ML IV PRN ×2
[2017-03-27] MEDS ORDERED: SODIUM PHOSPHATE INJ 30 MMOL in SODIUM CHLOR 0.9% 250 ML INJ 240 ML IV PRN ×2
[2017-03-27] MEDS ORDERED: POTASSIUM CHLORIDE 25 MEQ EFFERVESCENT TAB PO PRN
[2017-03-27] MEDS ORDERED: POTASSIUM PHOSPHATE MONOBASIC 500 MG TAB PO/TUBE PRN
[2017-03-27] MEDS ORDERED: MAGNESIUM SULFATE INJ 2 GM in SODIUM CHLORIDE 0.9% INJ 96 ML IV PRN ×2
[2017-03-27] MEDS ORDERED: MAGNESIUM SULFATE INJ 4 GM in SODIUM CHLORIDE 0.9% INJ 92 ML IV PRN ×2
[2017-03-27] MEDS ORDERED: POTASSIUM PHOSPHATE INJ 30 MMOL in SODIUM CHLOR 0.9% 250 ML INJ 250 ML IV PRN ×2
[2017-03-27] MEDS: POTASSIUM CHLOR 20 MEQ PREMIX 100 ML IV SCH ×5 (00:24→08:00)
[2017-03-27] MEDS: diphenhydrAMINE HCL 50 MG/ML VIAL IV PUSH PRN ×2 (01:18→10:54)
[2017-03-27] MEDS: CHLORHEXIDINE GLUCONATE 2 % 1 PACK (2 CLOTHS) TOP SCH (04:00)
[2017-03-27 04:33] LABS: HEMATOCRIT 33.9 % (35.0-46.0); MEAN CELL VOLUME 88.3 FL (80.0-100.0); MEAN CORPUSCULAR HEMOGLOBIN 30.1 PG (27.0-34.0); MEAN CORPUSCULAR HGB CONC 34.1 % (32.0-36.0); PLATELET COUNT 234 TH/MM3 (150-450); RED BLOOD COUNT 3.83 MIL/MM3 (4.00-5.30); REVIEW FLAG FINAL; WHITE BLOOD COUNT 5.6 TH/MM3 (4.0-11.0)
[2017-03-27 05:17] LABS: BICARBONATE 19.8 MEQ/L (21.0-32.0)
--- NOTE | 2017-03-27 06:49 | HHI.PR ---
Subjective Remarks Patient seen and examined this am. Vitals are stable and she is afebrile. BS currently 91. Was initially refusing to eat, she states her throat is sore. Is not agreeable to eating something soft. She states she lives at home with her boyfriend, she has a PCP that has been helping to manage her Dm as she has not been able to see an underground conduit installer in some time. She states she takes 40 units of insulin BID, but her sugars remain uncontrolled. She states her blood sugar is always around 300. She feels weak at this time and feels unable to bear weight or walk to the bathroom. Objective Vital Signs Date Time Temp Pulse Resp B/P Pulse Ox O2 Delivery O2 Flow Rate FiO2 03/27/17 06:00 80 03/27/17 04:00 98.9 82 22 110/69 100 03/27/17 04:00 82 03/27/17 02:00 97 03/27/17 00:00 99 03/27/17 00:00 98.8 99 20 114/65 97 03/26/17 23:00 94 03/26/17 22:00 94 03/26/17 20:00 109 03/26/17 20:00 98.9 109 20 103/51 97 03/26/17 18:00 111 03/26/17 16:00 111 03/26/17 16:00 99.4 107 17 115/67 98 03/26/17 15:00 105 03/26/17 14:00 111 03/26/17 12:00 98.4 122 18 125/73 98 03/26/17 12:00 111 03/26/17 11:30 125 92 125/70 99 03/26/17 11:15 121 40 126/69 99 03/26/17 11:00 122 43 130/76 98 03/26/17 10:15 124 59 125/72 99 03/26/17 10:00 118 30 125/69 98 03/26/17 10:00 111 03/26/17 09:45 118 26 127/69 98 03/26/17 09:30 123 54 122/67 99 03/26/17 09:15 122 48 129/69 98 03/26/17 09:00 124 76 120/58 99 03/26/17 08:45 128 60 113/56 98 03/26/17 08:30 126 55 105/53 98 03/26/17 08:15 125 81 102/53 98 03/26/17 08:00 98.4 126 21 108/56 98 03/26/17 08:00 126 21 108/56 98 03/26/17 08:00 111 03/26/17 07:45 127 40 108/51 98 03/26/17 07:30 124 66 107/51 99 03/26/17 07:15 121 34 103/54 99 03/26/17 07:00 106 03/26/17 07:00 118 33 101/55 99 03/26/17 06:45 119 34 112/55 98 I/O 03/26/17 03/26/17 03/26/17 03/27/17 03/27/17 03/27/17 07:00 15:00 23:00 07:00 15:00 23:00 Intake Total 1620 ml 1337 ml 1745 ml 919 ml Output Total 1400 ml 1400 ml 500 ml 400 ml Balance 220 ml -63 ml 1245 ml 519 ml Intake Oral 0 ml 120 ml 200 ml 200 ml IV Total 1620 ml 1217 ml 1545 ml 719 ml Output Urine Total 1400 ml 1400 ml 500 ml 400 ml # Bowel Movements 0 0 0 Result Diagram: 03/27/1731603/27/17316 Imaging Last Impressions Head CT 03/25/172058 Signed Impressions: Service Date/Time: Saturday, March 25, 2017 21:23 - CONCLUSION: Normal examination. Roge Macias MD Chest X-Ray 03/25/172055 Signed Impressions: Service Date/Time: Saturday, March 25, 2017 20:58 - CONCLUSION: Endotracheal tube and enteric tubes are noted as above. Roge Macias MD Objective Remarks GENERAL: thin appearing female, tired, but awakens easily SKIN: Warm and dry. HEAD: Normocephalic. EYES: No scleral icterus. No injection or drainage. NECK: Supple, trachea midline. No JVD or lymphadenopathy. CARDIOVASCULAR: Regular rate and rhythm without murmurs, gallops, or rubs. Right IJ present. RESPIRATORY: Breath sounds equal bilaterally. No accessory muscle use. GASTROINTESTINAL: Abdomen soft, non-tender, nondistended : mills in place. MUSCULOSKELETAL: No cyanosis, or edema. BACK: Nontender without obvious deformity. No CVA tenderness. A/P Problem List: (1) Altered mental status, unspecified ICD Code: R41.82 (2) DKA (diabetic ketoacidoses) ICD Code: E13.10 (3) DM (diabetes mellitus) type 1 with ketoacidosis ICD Code: E10.10 (4) ADHD ICD Code: F90.9 Assessment and Plan Assessment: 21yF type 1 diabetic originally admitted for altered mental status. She was unresponsive in the ED, received narcan and was intubated. Concern was for possible meningitis. Her mental status has improved and she was extubated. Patient was found to have diabetic ketoacidosis with a widening anion gap, uncontrolled blood glucose, clinical symptoms of nausea. Currently on DKA protocol. wbc normal, afebrile, and without any evidence of meningitis. will f/u full culture data, but will not continue abx at this time unless we have other evidence of infectious etiology. Respiratory failure- resolved. 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 - aggressive pulm toilet - oob with assist Altered mental status- resolved. - CT head negative - Urine drug screen negative - CSF Gram stain negative and initial growth NGTD - stop empiric abx, low current suspicion for meningitis - blood cultures negative x 1 day - altered mental status likely secondary to DKA Diabetic Keto-Acidosis- - Status: continues to have an anion gap > 12, b hydroxy now 2.14, hypoglycemia this am 23 random blood glucose (she received 30 units of levemir last night) - DKA protocol insulin drip--> running at zero - home insulin 35 units in am 48 in pm--> will decrease levemir to 10 units hs and start the patient on a low dose sliding scale - serial labs - iv hydration - encourage patient to eat Asthma - No exacerbation - DuoNeb's when necessary ADHD - stable DVT prophylaxis - encourage out of bed - Teds and SCDs Discharge Planning Will continue to watch patient in the unit today, due to significant hypoglycemia. If blood sugars remain stable throughout the day and evening we will transfer her to the floor tomorrow. IF blood sugars remain stable tomorrow , anticipate discharge on Tuesday if no further issues. I discussed this case with the nurse. Sanam Guzmán MD Mar 27, 2017 06:49
[2017-03-27] MEDS ORDERED: INSULIN NovoLIN REGULAR SUPPLEMENTAL SCALE SQ SCH (07:00)
--- NOTE | 2017-03-27 09:55 | HHI.FPPN ---
Addendum to progress note ADDENDUM Reason for addendum: Additonal documentation Additional information 1/ blood cultures now growing gram + cocci in pairs. She is without leukocytosis or fever. Given her clinical presentation and that DKA may have been precipitated by an infection, will empirically treat the patient with broad spectrum abx (zosyn), and repeat cultures. If repeat are negative will d.c abx. Discussed with nurse. Sanam Guzmán MD Mar 27, 2017 09:55
[2017-03-27] MEDS: ACETAMINOPHEN 325 MG TAB PO PRN (10:29)
[2017-03-27] MEDS: PIPERACIL-TAZO 3.375 GM PREMIX 50 ML IV SCH ×2 (10:30→17:39)
[2017-03-27] MEDS: INSULIN ASPART SUPPLEMENTAL SCALE SQ SCH ×3 (11:00→20:44)
[2017-03-27] MEDS ORDERED: DEXTROSE 50% IN WATER 50 ML SYRINGE ONE (11:33)
[2017-03-27 14:10] LABS: POTASSIUM 3.4 MEQ/L (3.5-5.1)
[2017-03-27] MEDS ORDERED: POTASSIUM CHLOR 20 MEQ PREMIX 100 ML IV ONE (14:30)
--- NOTE | 2017-03-27 14:32 | HHI.FPPN ---
Addendum to progress note ADDENDUM Reason for addendum: Additonal documentation Additional information Patient with recurrent hypoglycemia. Refusing to eat. Will hold basal levemir and sliding scale. Will start her on some D5NS @ 50 cc/hr. - once patient willing to eat, may stop fluids and initiate diet plan discussed with nurse. Sanam Guzmán MD Mar 27, 2017 14:32
[2017-03-27] MEDS: DEXTROSE 5% IN WATE 1000ML INJ 1,000 ML IV SCH ×2 (17:40→20:45)
[2017-03-27] MEDS: INSULIN DETEMIR 100 UNITS/ML VIAL SQ SCH (20:45)
[2017-03-28] VITALS (11 sets, daily range): BP systolic 96–118; BP diastolic 51–77; PULSE 70–89; RESP 17–20; TEMP 98–99; O2SAT 100
[2017-03-28] MEDS: PIPERACIL-TAZO 3.375 GM PREMIX 50 ML IV SCH ×3 (03:19→16:57)
[2017-03-28] MEDS: CHLORHEXIDINE GLUCONATE 2 % 1 PACK (2 CLOTHS) TOP SCH (03:20)
[2017-03-28] MEDS: diphenhydrAMINE HCL 50 MG/ML VIAL IV PUSH PRN ×3 (03:29→18:11)
[2017-03-28] MEDS: INSULIN ASPART SUPPLEMENTAL SCALE SQ SCH ×4 (07:00→20:21)
--- NOTE | 2017-03-28 07:04 | HHI.PR ---
Subjective Remarks Patient seen and examined this am. Vitals are stable and she is afebrile. Patient continued to have episodes of hypoglycemia and was refusing to eat. D5NS was started. Blood sugars seem to have stabilized this am, but still on IVF. Boyfriend brought her some food yesterday but she would not eat it. Complaining of diffuse body aches. She said she will try to eat some eggs this am. Objective Vital Signs Date Time Temp Pulse Resp B/P Pulse Ox O2 Delivery O2 Flow Rate FiO2 03/28/17 06:00 72 03/28/17 04:00 98.6 74 20 107/61 100 03/28/17 04:00 74 03/28/17 02:00 70 03/28/17 00:00 99.0 75 18 117/74 100 03/28/17 00:00 75 03/27/17 23:00 73 03/27/17 22:00 72 03/27/17 20:00 83 03/27/17 20:00 99.3 83 18 118/77 100 03/27/17 18:00 75 03/27/17 16:00 98.2 71 18 97/58 100 03/27/17 16:00 75 03/27/17 15:00 88 03/27/17 14:00 75 03/27/17 12:00 75 03/27/17 12:00 98.2 74 16 106/59 97 03/27/17 11:29 16 03/27/17 10:00 75 03/27/17 08:20 98 03/27/17 08:00 75 03/27/17 08:00 98.1 96 20 118/81 95 03/27/17 07:00 83 I/O 03/27/17 03/27/17 03/27/17 03/28/17 03/28/17 03/28/17 07:00 15:00 23:00 07:00 15:00 23:00 Intake Total 919 ml 1061 ml 855 ml 799 ml Output Total 400 ml 500 ml 500 ml 1400 ml Balance 519 ml 561 ml 355 ml -601 ml Intake Oral 200 ml 480 ml 100 ml 50 ml IV Total 719 ml 581 ml 755 ml 749 ml Output Urine Total 400 ml 500 ml 500 ml 1400 ml # Bowel Movements 0 1 1 Result Diagram: 03/27/17 0317 03/27/17 1325 Imaging Last Impressions Head CT 03/25/172058 Signed Impressions: Service Date/Time: Saturday, March 25, 2017 21:23 - CONCLUSION: Normal examination. Roge Macias MD Chest X-Ray 03/25/172055 Signed Impressions: Service Date/Time: Saturday, March 25, 2017 20:58 - CONCLUSION: Endotracheal tube and enteric tubes are noted as above. Roge Macias MD Objective Remarks GENERAL: thin appearing female, tired, but awakens easily SKIN: Warm and dry. HEAD: Normocephalic. EYES: No scleral icterus. No injection or drainage. NECK: Supple, trachea midline. No JVD or lymphadenopathy. CARDIOVASCULAR: Regular rate and rhythm without murmurs, gallops, or rubs. Right IJ present. RESPIRATORY: Breath sounds equal bilaterally. No accessory muscle use. GASTROINTESTINAL: Abdomen soft, non-tender, nondistended : mills in place. MUSCULOSKELETAL: No cyanosis, or edema. BACK: Nontender without obvious deformity. No CVA tenderness. A/P Problem List: (1) Altered mental status, unspecified ICD Code: R41.82 (2) DKA (diabetic ketoacidoses) ICD Code: E13.10 (3) DM (diabetes mellitus) type 1 with ketoacidosis ICD Code: E10.10 (4) ADHD ICD Code: F90.9 Assessment and Plan Assessment: 21yF type 1 diabetic originally admitted for altered mental status. She was unresponsive in the ED, received narcan and was intubated. Concern was for possible meningitis. Her mental status has improved and she was extubated. Patient was found to have diabetic ketoacidosis with a widening anion gap, uncontrolled blood glucose, clinical symptoms of nausea. Currently on DKA protocol. wbc normal, afebrile, and without any evidence of meningitis. will f/u full culture data, but will not continue abx at this time unless we have other evidence of infectious etiology. Respiratory failure- resolved. 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 - aggressive pulm toilet - oob with assist Altered mental status- resolved. - CT head negative - Urine drug screen negative - CSF Gram stain negative and initial growth NGTD - low current suspicion for meningitis--> CSF no growth in 48 hrs - 09/08 tubes staph, resumed empiric abx, blood ctx re-drawn - altered mental status likely secondary to DKA Diabetic Keto-Acidosis- - Status: BMP this am pending, she was having hypoglycemia and not eating so D5 was placed in her IVF - home insulin 40 units BID - serial labs - iv hydration - encourage patient to eat - hold on basal insulin until blood sugars stabilize, if she starts to eat, may resume low dose sliding scale Bacteremia - blood cultures 03/25 09/08 tubes growing staph epidermis. may represent a contaiment, discussed with micro. given clinical state of patient, will treat her for bacterima with zosyn (03/27) - blood cultures redrawn on 03/27, if negative x 48 hrs will d/c abx Asthma - No exacerbation - DuoNeb's when necessary ADHD - stable DVT prophylaxis - encourage out of bed - Teds and SCDs Discharge Planning Will continue to watch patient in the unit today, due to persistent hypoglycemia. Can d/c out of the unit when blood sugars stabilize. PT reccs home with home health. I discussed this case with the nurse. Sanam Guzmán MD Mar 28, 2017 07:04
[2017-03-28] MEDS: IBUPROFEN 600 MG TAB PO PRN (10:14)
[2017-03-28 10:27] LABS: AUTOMATED NEUTROPHIL # 0.8 TH/MM3 (1.8-7.7); BASOPHIL % 0.7 % (0.0-2.0); EOSINOPHIL # 0.1 TH/MM3 (0-0.4); EOSINOPHIL % 1.6 % (0.0-4.0); HEMATOCRIT 37.2 % (35.0-46.0); LYMPH % 66.4 % (9.0-44.0); LYMPHOCYTE # 2.2 TH/MM3 (1.0-4.8); MEAN CELL VOLUME 88.2 FL (80.0-100.0); MEAN CORPUSCULAR HEMOGLOBIN 29.8 PG (27.0-34.0); MEAN CORPUSCULAR HGB CONC 33.8 % (32.0-36.0); MONO % 7.5 % (0.0-8.0); NEUT % 23.8 % (16.0-70.0); PLATELET COUNT 189 TH/MM3 (150-450); RED BLOOD COUNT 4.21 MIL/MM3 (4.00-5.30); RED CELL DISTRIBUTION WIDTH 13.6 % (11.6-17.2); WHITE BLOOD COUNT 3.4 TH/MM3 (4.0-11.0)
[2017-03-28 10:31] LABS: HEMO FLAGS AUTO DIFF
[2017-03-28 10:35] LABS: BICARBONATE 28.5 MEQ/L (21.0-32.0); POTASSIUM 3.1 MEQ/L (3.5-5.1)
[2017-03-28 11:07] LABS: PLATELET ESTIMATE SMEAR NORMAL (NORMAL); PLATELET MORPHOLOGY NORMAL (NORMAL); POLYS (SEG NEUTROPHILS) 29 % (16-70); SCAN/DIFF FINAL DIFF MANUAL; WBC DIFF SAMPLE 100
[2017-03-28] MEDS: DEXTROSE 5% IN WATE 1000ML INJ 1,000 ML IV SCH (11:22)
[2017-03-28] MEDS: POTASSIUM CHLORIDE 10 MEQ CONTROLLED RELEASE TAB PO SCH ×2 (15:16→20:19)
[2017-03-28] MEDS: ACETAMINOPHEN 325 MG TAB PO PRN (15:16)
[2017-03-29] VITALS (15 sets, daily range): BP systolic 103–118; BP diastolic 62–79; PULSE 66–124; RESP 16–24; TEMP 98–98.8; O2SAT 97–100
[2017-03-29] MEDS: diphenhydrAMINE HCL 50 MG/ML VIAL IV PUSH PRN ×4 (00:22→18:31)
[2017-03-29] MEDS: PIPERACIL-TAZO 3.375 GM PREMIX 50 ML IV SCH ×3 (00:25→18:00)
[2017-03-29] MEDS: CHLORHEXIDINE GLUCONATE 2 % 1 PACK (2 CLOTHS) TOP SCH (01:08)
[2017-03-29] MEDS: INSULIN ASPART SUPPLEMENTAL SCALE SQ SCH ×4 (06:48→21:23)
[2017-03-29 06:56] LABS: HEMATOCRIT 38.5 % (35.0-46.0); MEAN CELL VOLUME 89.5 FL (80.0-100.0); MEAN CORPUSCULAR HEMOGLOBIN 29.6 PG (27.0-34.0); PLATELET COUNT 188 TH/MM3 (150-450); RED BLOOD COUNT 4.31 MIL/MM3 (4.00-5.30); RED CELL DISTRIBUTION WIDTH 13.8 % (11.6-17.2); REVIEW FLAG FINAL; WHITE BLOOD COUNT 3.8 TH/MM3 (4.0-11.0)
[2017-03-29 07:15] LABS: BICARBONATE 27.8 MEQ/L (21.0-32.0); POTASSIUM 4.7 MEQ/L (3.5-5.1)
[2017-03-29] MEDS: POTASSIUM CHLORIDE 10 MEQ CONTROLLED RELEASE TAB PO SCH ×2 (07:49→21:33)
--- NOTE | 2017-03-29 08:01 | HHI.PR ---
Subjective Remarks Patient seen and examined this am. Vitals are stable and she is afebrile. Patient now tolerating her full diet. D5 stopped yesterday. No further hypoglycemia. Patient is sitting up in bed eating breakfast this am. She reports feeling a lot better. Reports some right neck pain where IV was placed. She states she lives at home with her BF and son. She is anxious to get home to them. Objective Vital Signs Date Time Temp Pulse Resp B/P Pulse Ox O2 Delivery O2 Flow Rate FiO2 03/29/17 06:00 66 03/29/17 04:00 98.6 67 18 114/68 97 03/29/17 04:00 67 03/29/17 02:00 73 03/29/17 00:00 98.3 85 18 113/63 100 03/29/17 00:00 85 03/28/17 22:00 79 03/28/17 20:00 88 03/28/17 20:00 98.3 88 20 111/70 100 03/28/17 16:00 80 03/28/17 16:00 98.5 80 17 96/51 100 03/28/17 14:00 89 03/28/17 12:00 98.1 86 17 118/77 100 03/28/17 12:00 86 03/28/17 10:00 80 03/28/17 08:00 79 03/28/17 08:00 98.0 79 18 109/66 100 I/O 03/28/17 03/28/17 03/28/17 03/29/17 03/29/17 03/29/17 07:00 15:00 23:00 07:00 15:00 23:00 Intake Total 799 ml 1179 ml 500 ml 149 ml Output Total 1400 ml 700 ml 800 ml 1800 ml Balance -601 ml 479 ml -300 ml -1651 ml Intake Oral 50 ml 480 ml 500 ml 100 ml IV Total 749 ml 699 ml 0 ml 49 ml Output Urine Total 1400 ml 700 ml 800 ml 1800 ml # Bowel Movements 1 0 0 0 Result Diagram: 03/29/17 0553 03/29/17 0553 Imaging Last Impressions Head CT 03/25/172058 Signed Impressions: Service Date/Time: Saturday, March 25, 2017 21:23 - CONCLUSION: Normal examination. Roge Macias MD Chest X-Ray 03/25/172055 Signed Impressions: Service Date/Time: Saturday, March 25, 2017 20:58 - CONCLUSION: Endotracheal tube and enteric tubes are noted as above. Roge Macias MD Objective Remarks GENERAL: thin appearing female, awake and alert, sitting up in bed SKIN: Warm and dry. HEAD: Normocephalic. EYES: No scleral icterus. No injection or drainage. NECK: Supple, trachea midline. No JVD or lymphadenopathy. CARDIOVASCULAR: Regular rate and rhythm without murmurs, gallops, or rubs. RESPIRATORY: Breath sounds equal bilaterally. No accessory muscle use. GASTROINTESTINAL: Abdomen soft, non-tender, nondistended : mills in place. MUSCULOSKELETAL: No cyanosis, or edema. BACK: Nontender without obvious deformity. No CVA tenderness. A/P Problem List: (1) Altered mental status, unspecified ICD Code: R41.82 (2) DKA (diabetic ketoacidoses) ICD Code: E13.10 (3) DM (diabetes mellitus) type 1 with ketoacidosis ICD Code: E10.10 (4) ADHD ICD Code: F90.9 Assessment and Plan Assessment: 21yF type 1 diabetic originally admitted for altered mental status. She was unresponsive in the ED, received narcan and was intubated. Concern was for possible meningitis. Her mental status has improved and she was extubated. Patient was found to have diabetic ketoacidosis with a widening anion gap, uncontrolled blood glucose, clinical symptoms of nausea. DKA, but patient was refusing to eat. She had recurrent episode of hypoglycemia on 03/27 and the patient was started on D5NS and all insulin was held. On 03/28 the patient started eating, her D/5 was stopped. She had elevated blood glucose that was covered with her sliding scale. Her anion rohit continues to remain closed. Respiratory failure- resolved. 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 Altered mental status- resolved. - CT head negative - Urine drug screen negative - CSF Gram stain negative and initial growth NGTD - low current suspicion for meningitis--> CSF no growth in 48 hrs - /4 tubes staph, resumed empiric abx, blood ctx re-drawn and have been negative to date - altered mental status likely secondary to DKA Diabetic Keto-Acidosis- resolved. - now that the patient is eating: start levemir 10 units HS, low dose sliding scale - diabetic education - A1C pending - will adjust insulin as needed Bacteremia - blood cultures 03/25 09/08 tubes growing staph epidermis. may represent a containment, discussed with micro, but could also be real. given her clinical state of patient on admission, will treat her for bacterima with zosyn (03/27) until repeat blood cultures are negative - no current source of infection at this time - blood cultures redrawn on 03/27, if negative x 48 hrs will d/c abx Asthma - No exacerbation - DuoNeb's when necessary ADHD - stable DVT prophylaxis - encourage out of bed - Teds and SCDs Discharge Planning Start basal insulin, transfer out of the ICU, if blood sugars remain stable likely home in 1-2 days PT reccs home with home health. Remove mills, out of bed at [facility] I discussed this case with the nurse. Sanam Guzmán MD Mar 29, 2017 08:01
[2017-03-29 08:34] LABS: HSV 1,PCR Negative (Negative)
[2017-03-29] MEDS ORDERED: PROP10TA6 PO (13:43)
[2017-03-29] MEDS: PROPRANOLOL HCL 10 MG TAB PO SCH (14:41)
[2017-03-29 16:50] LABS: HEMOGLOBIN A1a 1.6 %; HEMOGLOBIN A1b 1.1 %; HEMOGLOBIN Ao 75.5 %; HEMOGLOBIN F 2.3 %; HEMOGLOBIN LA1C 4.3 %; HEMOGLOBIN P3 4.6 %
[2017-03-29] MEDS ORDERED: PANTOPRAZOLE SOD 20 MG DELAYED RELEASE TAB PO SCH (16:55)
[2017-03-29] MEDS: PANTOPRAZOLE SOD 20 MG DELAYED RELEASE TAB PO SCH (19:46)
[2017-03-29] MEDS: INSULIN DETEMIR 100 UNITS/ML VIAL SQ SCH (21:22)
[2017-03-30 00:25] VITALS: BP 116/82; PULSE 90; RESP 16; TEMP 98.8; O2SAT 98
[2017-03-30] MEDS: diphenhydrAMINE HCL 50 MG/ML VIAL IV PUSH PRN ×4 (00:36→19:19)
[2017-03-30] MEDS: IBUPROFEN 600 MG TAB PO PRN (03:46)
[2017-03-30 04:00] VITALS: BP 109/60; PULSE 88; RESP 20; TEMP 98.5; O2SAT 96
[2017-03-30] MEDS: CHLORHEXIDINE GLUCONATE 2 % 1 PACK (2 CLOTHS) TOP SCH (04:00)
[2017-03-30 05:43] LABS: HEMATOCRIT 35.7 % (35.0-46.0); MEAN CELL VOLUME 87.4 FL (80.0-100.0); MEAN CORPUSCULAR HEMOGLOBIN 30.2 PG (27.0-34.0); MEAN CORPUSCULAR HGB CONC 34.5 % (32.0-36.0); PLATELET COUNT 197 TH/MM3 (150-450); RED BLOOD COUNT 4.09 MIL/MM3 (4.00-5.30); RED CELL DISTRIBUTION WIDTH 13.9 % (11.6-17.2); REVIEW FLAG FINAL
[2017-03-30 06:11] LABS: BICARBONATE 26.9 MEQ/L (21.0-32.0); POTASSIUM 4.1 MEQ/L (3.5-5.1)
[2017-03-30 07:30] VITALS: BP 106/68; PULSE 88; RESP 16; TEMP 98.8; O2SAT 97
[2017-03-30] MEDS: INSULIN ASPART SUPPLEMENTAL SCALE SQ SCH ×4 (08:29→21:24)
[2017-03-30] MEDS: POTASSIUM CHLORIDE 10 MEQ CONTROLLED RELEASE TAB PO SCH ×2 (10:05→21:25)
[2017-03-30] MEDS: PANTOPRAZOLE SOD 20 MG DELAYED RELEASE TAB PO SCH (10:05)
--- NOTE | 2017-03-30 10:22 | HHI.PR ---
Subjective Remarks resting comfortably with no distress. has mild weakness. blood sugar still elevated. Objective Vitals Vital Signs Date Time Temp Pulse Resp B/P Pulse Ox O2 Delivery O2 Flow Rate FiO2 03/30/17 07:30 98.8 88 16 106/68 97 03/30/17 04:00 98.5 88 20 109/60 96 03/30/17 00:25 98.8 90 16 116/82 98 03/29/17 20:00 98.8 77 16 118/73 97 03/29/17 16:31 98.0 83 22 103/72 99 03/29/17 16:00 89 03/29/17 16:00 98.5 89 17 104/62 99 03/29/17 15:00 124 21 107/74 100 03/29/17 14:00 102 24 110/79 99 03/29/17 14:00 102 03/29/17 13:00 117 19 108/75 03/29/17 12:00 104 03/29/17 12:00 98.3 104 16 100 03/29/17 11:00 114 18 98 I/O 03/29/17 03/29/17 03/29/17 03/30/17 03/30/17 03/30/17 07:00 15:00 23:00 07:00 15:00 23:00 Intake Total 149 ml 340 ml 1440 ml Output Total 1800 ml 1900 ml Balance -1651 ml -1560 ml 1440 ml Intake Oral 100 ml 240 ml 1440 ml IV Total 49 ml 100 ml Output Urine Total 1800 ml 1900 ml # Voids 4 # Bowel Movements 0 1 1 Result Diagram: 03/30/17 0500 03/30/17 050 Imaging Last Impressions Head CT 03/25/172058 Signed Impressions: Service Date/Time: Saturday, March 25, 2017 21:23 - CONCLUSION: Normal examination. Roge Macias MD Chest X-Ray 03/25/172055 Signed Impressions: Service Date/Time: Saturday, March 25, 2017 20:58 - CONCLUSION: Endotracheal tube and enteric tubes are noted as above. Roge Macias MD Objective Remarks GENERAL: This is a well-nourished, well-developed patient, in no apparent distress. CARDIOVASCULAR: Regular rate and regular rhythm without murmurs, gallops, or rubs. RESPIRATORY: Clear to auscultation. Breath sounds equal bilaterally. No wheezes , rales, or rhonchi. GASTROINTESTINAL: Abdomen soft, non-tender, nondistended. Normal, active bowel sounds MUSCULOSKELETAL: Extremities without clubbing, cyanosis, or edema. NEURO: Alert & Oriented x4 to person, place, time, situation. Moves all ext x4 Medications and IVs Current Medications Propofol 100 ml @ As Directed STK-MED ONCE .ROUTE ; Start 03/25/17 at 20:46; Stop 03/25/17 at 20:47; Status DC Sodium Chloride 1,000 ml @ 999 mls/hr BOLUS ONCE IV Last administered on 03/25 22:20; Start 03/25/17 at 21:00; Stop 03/25/17 at 22:00; Status DC Propofol 100 ml @ 0 mls/hr TITRATE IV ; Start 03/25/17 at 21:00; Stop 03/26/17 at 08:39; Status DC Fentanyl Citrate (fentaNYL DRIP) 250 ml @ 0 mls/hr TITRATE IV ; Start 03/25/17 at 21:00; Stop 03/26/17 at 22:15; Status DC Etomidate (Amidate Inj) 20 mg ONCE ONCE IV PUSH Last administered on 22:21; Start 03/25/17 at 21:15; Stop 03/25/17 at 21:16; Status DC Succinylcholine Chloride (Quelicin Inj) 100 mg ONCE ONCE IV PUSH Last administered on 03/25/17 22:22; Start 03/25/17 at 21:15; Stop 03/25/17 at 21:16 ; Status DC Vecuronium [place] (Norcuron 10 Mg Inj) 10 mg ONCE ONCE IV PUSH Last administered on 03/25/17 22:22; Start 03/25/17 at 21:15; Stop 03/25/17 at 21:16 ; Status DC Dexamethasone Sodium Phosphate 10 mg 10 mg ONCE ONCE IV PUSH Last administered on 03/25/17 22:21; Start 03/25/17 at 21:15; Stop 03/25/17 at 21:16 ; Status DC Ceftriaxone Sodium 2000 mg/ Sodium Chloride 100 ml @ 200 mls/hr ONCE STAT IV Last administered on 03/25/17 22:21; Start 03/25/17 at 21:06; Stop 03/25/17 at 21:35; Status DC Vancomycin HCl/ Sodium Chloride (Vancomycin Inj/ NS 250 ml Inj) 261.5 ml @ 250 mls/hr ONCE ONCE IV Last administered on 03/26/17 00:59; Start 03/25/17 at 21 :15; Stop 03/25/17 at 22:17; Status DC Naloxone HCl 0.4 mg 0.4 mg ONCE ONCE IV PUSH Last administered on 03/25/17 22 :22; Start 03/25/17 at 21:15; Stop 03/25/17 at 21:16; Status DC Fentanyl Citrate 250 ml @ As Directed STK-MED ONCE .ROUTE Last administered on 03/25/17 22:24; Start 03/25/17 at 21:55; Stop 03/25/17 at 21:56; Status DC Potassium Phosphate/Sodium Chloride (Potassium Phosphate Inj/NS 250 ml Inj) 260 ml @ 43.333 mls/ hr ONCE ONCE IV ; Start 03/25/17 at 22:15; Stop 03/26/17 at 04:14; Status DC Midazolam HCl (Versed Inj) 2 mg ONCE ONCE IV PUSH Last administered on 22:23; Start 03/25/17 at 22:15; Stop 03/25/17 at 22:17; Status DC Vecuronium [place] 10 mg 10 mg ONCE ONCE IV PUSH Last administered on 22:35; Start 03/25/17 at 22:30; Stop 03/25/17 at 22:31; Status DC Sodium Chloride 1,000 ml @ 1,000 mls/hr Q1H IV Last administered on 03/25/17 23:50; Start 03/25/17 at 22:50; Stop 03/26/17 at 00:49; Status DC Sodium Chloride 1,000 ml @ 250 mls/hr Q4H IV Last administered on 03/26/17 06 :50; Start 03/25/17 at 22:50; Stop 03/26/17 at 22:29; Status DC Dextrose/Sodium Chloride 1,000 ml @ 200 mls/hr Q5H IV Last administered on 17:09; Start 03/25/17 at 22:50; Stop 03/26/17 at 22:29; Status DC Insulin Human Regular 100 units/ Sodium Chloride 100 ml @ 0 mls/hr TITRATE IV Last administered on 03/26/17t 08:54; Start 03/25/17 at 23:00; Stop 03/26/17 at 23:00; Status DC Potassium Chloride 100 ml @ 100 mls/hr Q1H PRN IV SEE LABEL COMMENTS; Start at 23:00; Stop 03/26/17 at 22:29; Status DC Potassium Chloride 100 ml @ 50 mls/hr Q2H PRN IV SEE LABEL COMMENTS; Start at 23:00; Stop 03/26/17 at 22:29; Status DC Potassium Chloride 100 ml @ 100 mls/hr Q1H PRN IV SEE LABEL COMMENTS; Start at 23:00; Stop 03/26/17 at 22:29; Status DC Potassium Chloride 100 ml @ 100 mls/hr Q1H PRN IV SEE LABEL COMMENTS; Start at 23:00; Stop 03/26/17 at 22:29; Status DC Potassium Chloride 100 ml @ 50 mls/hr Q2H PRN IV SEE LABEL COMMENTS; Start at 23:00; Stop 03/26/17 at 22:29; Status DC Potassium Chloride 100 ml @ 50 mls/hr Q2H PRN IV SEE LABEL COMMENTS; Start at 23:00; Stop 03/26/17 at 22:29; Status DC Potassium Chloride 100 ml @ 50 mls/hr Q2H PRN IV SEE LABEL COMMENTS; Start at 23:00; Stop 03/26/17 at 22:29; Status DC Potassium Chloride (KCl 20 Meq Premix Inj) 100 ml @ 50 mls/hr Q2H PRN IV SEE LABEL COMMENTS; Start 03/25/17 at 23:00; Stop 03/26/17 at 22:30; Status DC Sodium Bicarbonate (Sodium Bicarbonate 8.4% Inj) 100 meq UNSCH PRN IV SEE LABEL COMMENTS; Start 03/25/17 at 23:00; Stop 03/26/17 at 22:30; Status DC Sodium Bicarbonate 50 meq 50 meq UNSCH PRN IV SEE LABEL COMMENTS; Start at 23:00; Stop 03/26/17 at 22:30; Status DC Sodium Phosphate/ Sodium Chloride (Sodium Phosphate Inj/NS Inj) 105 ml @ 25 mls /hr UNSCH PRN IV SEE LABEL COMMENTS; Start 03/25/17 at 23:00; Stop 03/26/17 at 22:30; Status DC Miscellaneous Information 1 Q361D XX ; Start 03/25/17 at 23:00 Chlorhexidine Gluconate (Chlorhexidine 2% Cloth) 3 pack Taper DAILY@04 TOP Last administered on 03/29/17 01:08; Start 03/26/17 at 04:00; Stop 03/22/18 at 03:59 Chlorhexidine Gluconate (Chlorhexidine 2% Cloth) 3 pack UNSCH PRN TOP HYGIENIC CARE; Start 03/25/17 at 23:00 Acetaminophen (Tylenol) 650 mg Q4H PRN PO fever Last administered on 03/28/17 15:16; Start 03/26/17 at 04:00 Diphenhydramine HCl (Benadryl Inj) 12.5 mg Q6H PRN IV PUSH nausea Last administered on 03/30/17 06:35; Start 03/26/17 at 08:15 Insulin Detemir (Levemir Inj) 30 units HS SQ Last administered on 03/26/17 19: 42; Start 03/26/17 at 21:00; Stop 03/27/17 at 08:28; Status DC Miscellaneous Information 1 ONCE ONCE .XX ; Start 03/26/17 at 22:15; Stop 03/26 at 22:30; Status DC Miscellaneous Information 1 ONCE ONCE .XX ; Start 03/26/17 at 22:15; Stop 03/26 at 22:30; Status DC Insulin Human Regular (NovoLIN R SUPPLEMENTAL SCALE) 1 ACHS SLIDING SCALE SQ ; Start 03/27/17 at 07:00; Stop 03/27/17 at 08:28; Status DC Dextrose (D50w (Vial) Inj) 50 ml UNSCH PRN IV HYPOGLYCEMIA-SEE COMMENTS Last administered on 03/27/17 04:56; Start 03/26/17 at 22:15 Glucagon 1 mg 1 mg UNSCH PRN OTHER HYPOGLYCEMIA-SEE COMMENTS; Start 03/26/17 at 22:15 Potassium Chloride 100 ml @ 50 mls/hr Q2H IV Last administered on 03/27/17 01 :56; Start 03/27/17 at 00:00; Stop 03/27/17 at 09:00; Status DC Potassium Chloride 100 ml @ 50 mls/hr Q2H PRN IV For Potassium 2.8 - 3.2 mEq/L ; Start 03/27/17 at 00:00; Stop 03/29/17 at 16:39; Status DC Potassium Chloride (KCl 20 Meq Premix Inj) 100 ml @ 50 mls/hr Q2H PRN IV For Potassium 2.8 - 3.2 mEq/L Last administered on 03/28/17t 11:21; Start 03/27/17 at 00:00; Stop 03/29/17 at 16:39; Status DC Potassium Bicarb/ Potassium Chloride 50 meq 50 meq UNSCH PRN PO For Potassium 3.3 - 3.5 mEq/L; Start 03/27/17 at 00:00; Stop 03/29/17 at 16:39; Status DC Potassium Chloride 100 ml @ 25 mls/hr UNSCH PRN IV For Potassium 3.3 - 3.5 mEq /L; Start 03/27/17 at 00:00; Stop 03/29/17 at 16:39; Status DC Potassium Chloride 100 ml @ 50 mls/hr Q2H PRN IV For Potassium 3.3 - 3.5 mEq/L ; Start 03/27/17 at 00:00; Stop 03/29/17 at 16:39; Status DC Magnesium Sulfate/ Sodium Chloride (Magnesium Sulfate Inj/NS Inj) 100 ml @ 50 mls/hr UNSCH PRN IV For Magnesium 0.9 - 1.1 mg/dL; Start 03/27/17 at 00:00; Stop 03/29/17 at 16:39; Status DC Magnesium Oxide 800 mg 800 mg UNSCH PRN PO For Magnesium 1.2 - 1.6 mg/dL; Start 03/27/17 at 00:00; Stop 03/29/17 at 16:39; Status DC Magnesium Sulfate/ Sodium Chloride (Magnesium Sulfate Inj/NS Inj) 100 ml @ 50 mls/hr UNSCH PRN IV For Magnesium 1.2 - 1.6 mg/dL; Start 03/27/17 at 00:00; Stop 03/29/17 at 16:39; Status DC Potassium Phosphate 2000 mg 2,000 mg Q4H PRN PO For Phosphorus < 2.5 mg/dL; Start 03/27/17 at 00:00; Stop 03/29/17 at 16:39; Status DC Sodium Phosphate/ Sodium Chloride (Sodium Phosphate Inj/NS 250 ml Inj) 250 ml @ 42 mls/hr UNSCH PRN IV For Phosphorus < 2.5 mg/dL; Start 03/27/17 at 00:00; Stop 03/29/17 at 16:39; Status DC Potassium Phosphate 2000 mg 2,000 mg UNSCH PRN PO/TUBE SEE LABEL COMMENTS; Start 03/27/17 at 00:00; Stop 03/29/17 at 16:39; Status DC Potassium Phosphate/Sodium Chloride (Potassium Phosphate Inj/NS 250 ml Inj) 260 ml @ 42 mls/hr UNSCH PRN IV SEE LABEL COMMENTS Last administered on 03/27/17 01:50; Start 03/27/17 at 00:00; Stop 03/29/17 at 16:39; Status DC Insulin Detemir (Levemir Inj) 10 units HS SQ Last administered on 03/29/17 21: 22; Start 03/27/17 at 21:00 Insulin Aspart 1 1 ACHS SLIDING SCALE SQ Last administered on 03/30/17 08:29 ; Start 03/27/17 at 11:00 Piperacillin Sod/ Tazobactam Sod (Zosyn 3.375 Gm Premix) 50 ml @ 100 mls/hr Q8H IV Last administered on 03/29/17 07:49; Start 03/27/17 at 10:00; Stop at 20:14; Status DC Dextrose 50 ml 50 ml STK-MED ONCE .ROUTE Last administered on 03/27/17 11:37; Start 03/27/17 at 11:33; Stop 03/27/17 at 11:34; Status DC Dextrose 1,000 ml @ 84 mls/hr [id number] IV Last administered on 03/28/17 11:22 ; Start 03/27/17 at 13:00; Stop 03/28/17 at 16:48; Status DC Potassium Chloride (KCl 20 Meq Premix Inj) 100 ml @ 50 mls/hr BOLUS ONCE IV Last administered on 03/27/17 17:40; Start 03/27/17 at 14:30; Stop 03/27/17 at 16:29; Status DC Ibuprofen (Motrin) 600 mg Q8HR PRN PO pain Last administered on 03/30/17 03:46 ; Start 03/28/17 at 09:00 Potassium Chloride (KCl) 30 meq Q12HR PO Last administered on 03/30/17 10:05; Start 03/28/17 at 15:00 Propranolol HCl (Inderal) 10 mg DAILY PO Last administered on 03/29/17 14:41; Start 03/29/17 at 14:00 Pantoprazole Sodium (Protonix) 20 mg DAILY PO ; Start 03/29/17 at 16:55; Stop at 18:18; Status DC Pantoprazole Sodium (Protonix) 20 mg DAILY PO Last administered on 03/30/17 10 :05; Start 03/29/17 at 19:00 A/P Assessment and Plan Respiratory failure- resolved. 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 Altered mental status- resolved. - CT head negative - Urine drug screen negative - CSF Gram stain negative and initial growth NGTD - low current suspicion for meningitis--> CSF no growth in 48 hrs - 1/4 tubes staph, resumed empiric abx, blood ctx re-drawn and have been negative to date - altered mental status likely secondary to DKA Diabetic Keto-Acidosis- resolved. 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 may represent a containment, discussed with micro, but could also be real. given her clinical state of patient on admission, will treat her for bacterima with zosyn (03/27) until repeat blood cultures are negative - no current source of infection at this time -dc antibiotics. Asthma - No exacerbation - DuoNeb's when necessary ADHD - stable DVT prophylaxis - encourage out of bed - Teds and SCDs Discharge Planning dc home within the next 24-48 hrs if blood sugar better controlled. Jose Bland MD Mar 30, 2017 10:21
[2017-03-30] MEDS ORDERED: INSULIN DETEMIR 100 UNITS/ML VIAL SQ ONE (10:45)
[2017-03-30] MEDS: PROPRANOLOL HCL 10 MG TAB PO SCH (10:58)
[2017-03-30 16:30] VITALS: PULSE 82; RESP 14; TEMP 98.4; O2SAT 100
[2017-03-30] MEDS ORDERED: LEVEMIR SQ (18:25)
[2017-03-30] MEDS ORDERED: NOVOLOGSS SQ (18:25)
--- NOTE | 2017-03-30 18:26 | HHI.DCPOC ---
Discharge Care Plan Diagnosis: (1) DKA (diabetic ketoacidoses) Your Health Problems Are: Fluctuating Blood Sugars Goals to Promote Your Health * To prevent worsening of your condition and complications * To maintain your health at the optimal level Directions to Meet Your Goals Take your medications as prescribed Follow your dietary instruction Follow activity as directed Keep your appointments as scheduled Take your immunizations and boosters as scheduled If your symptoms worsen call your PCP, if no PCP go to Urgent Care Center or Emergency Room Smoking is Dangerous to Your Health. Avoid second hand smoke Call the 24-hour hour crisis hotline for domestic abuse at Jose Bland MD Mar 30, 2017 18:26
[2017-03-30 19:20] VITALS: BP 119/77; PULSE 82; RESP 20; TEMP 98.4; O2SAT 97
[2017-03-30] MEDS: INSULIN DETEMIR 100 UNITS/ML VIAL SQ SCH (21:24)
[2017-03-31] VITALS: BP 113/69; PULSE 92; RESP 20; TEMP 98.7; O2SAT 98
[2017-03-31] MEDS: IBUPROFEN 600 MG TAB PO PRN (02:38)
[2017-03-31] MEDS: diphenhydrAMINE HCL 50 MG/ML VIAL IV PUSH PRN ×3 (02:40→16:30)
[2017-03-31 04:00] VITALS: BP 111/70; PULSE 79; RESP 20; TEMP 98; O2SAT 98
[2017-03-31] MEDS: CHLORHEXIDINE GLUCONATE 2 % 1 PACK (2 CLOTHS) TOP SCH (04:00)
[2017-03-31 05:45] LABS: HEMATOCRIT 34.6 % (35.0-46.0); MEAN CELL VOLUME 88.8 FL (80.0-100.0); MEAN CORPUSCULAR HEMOGLOBIN 29.9 PG (27.0-34.0); MEAN CORPUSCULAR HGB CONC 33.7 % (32.0-36.0); PLATELET COUNT 210 TH/MM3 (150-450); RED BLOOD COUNT 3.89 MIL/MM3 (4.00-5.30); RED CELL DISTRIBUTION WIDTH 13.8 % (11.6-17.2); REVIEW FLAG FINAL; WHITE BLOOD COUNT 4.4 TH/MM3 (4.0-11.0)
[2017-03-31 05:49] LABS: POTASSIUM 4.1 MEQ/L (3.5-5.1)
[2017-03-31] MEDS: PANTOPRAZOLE SOD 20 MG DELAYED RELEASE TAB PO SCH (08:45)
[2017-03-31] MEDS: POTASSIUM CHLORIDE 10 MEQ CONTROLLED RELEASE TAB PO SCH (08:45)
[2017-03-31] MEDS: PROPRANOLOL HCL 10 MG TAB PO SCH (08:45)
[2017-03-31] MEDS: INSULIN ASPART SUPPLEMENTAL SCALE SQ SCH ×3 (08:53→17:06)
[2017-03-31] MEDS: INSULIN DETEMIR 100 UNITS/ML VIAL SQ SCH (08:54)
[2017-03-31 09:09] VITALS: BP 109/69; PULSE 67; RESP 18; TEMP 98.6; O2SAT 98
--- NOTE | 2017-03-31 09:32 | HHI.PR ---
Subjective Remarks in no acute distress. denies pain. accu-checks overall better. d/w the RN. Objective Vitals Vital Signs Date Time Temp Pulse Resp B/P Pulse Ox O2 Delivery O2 Flow Rate FiO2 03/31/17 09:09 98.6 67 18 109/69 98 03/31/17 04:00 98.0 79 20 111/70 98 03/31/17 00:00 98.7 92 20 113/69 98 03/30/17 19:20 98.4 82 20 119/77 97 03/30/17 16:30 98.4 82 14 100 I/O 03/30/17 03/30/17 03/30/17 03/31/17 03/31/17 03/31/17 07:00 15:00 23:00 07:00 15:00 23:00 Intake Total 1440 ml 800 ml 1200 ml Balance 1440 ml 800 ml 1200 ml Intake Oral 1440 ml 800 ml 1200 ml # Voids 4 3 2 # Bowel Movements 1 1 Result Diagram: 03/31/1741903/31/17419 Imaging Last Impressions Head CT 03/25/172058 Signed Impressions: Service Date/Time: Saturday, March 25, 2017 21:23 - CONCLUSION: Normal examination. Roge Macias MD Chest X-Ray 03/25/172055 Signed Impressions: Service Date/Time: Saturday, March 25, 2017 20:58 - CONCLUSION: Endotracheal tube and enteric tubes are noted as above. Roge Macias MD Objective Remarks GENERAL: This is a well-nourished, well-developed patient, in no apparent distress. CARDIOVASCULAR: Regular rate and regular rhythm without murmurs, gallops, or rubs. RESPIRATORY: Clear to auscultation. Breath sounds equal bilaterally. No wheezes , rales, or rhonchi. GASTROINTESTINAL: Abdomen soft, non-tender, nondistended. Normal, active bowel sounds MUSCULOSKELETAL: Extremities without clubbing, cyanosis, or edema. NEURO: Alert & Oriented x4 to person, place, time, situation. Moves all ext x4 Procedures intubation Medications and IVs Current Medications Propofol 100 ml @ As Directed STK-MED ONCE .ROUTE ; Start 03/25/17 at 20:46; Stop 03/25/17 at 20:47; Status DC Sodium Chloride 1,000 ml @ 999 mls/hr BOLUS ONCE IV Last administered on 03/25 22:20; Start 03/25/17 at 21:00; Stop 03/25/17 at 22:00; Status DC Propofol 100 ml @ 0 mls/hr TITRATE IV ; Start 03/25/17 at 21:00; Stop 03/26/17 at 08:39; Status DC Fentanyl Citrate (fentaNYL DRIP) 250 ml @ 0 mls/hr TITRATE IV ; Start 03/25/17 at 21:00; Stop 03/26/17 at 22:15; Status DC Etomidate (Amidate Inj) 20 mg ONCE ONCE IV PUSH Last administered on 22:21; Start 03/25/17 at 21:15; Stop 03/25/17 at 21:16; Status DC Succinylcholine Chloride (Quelicin Inj) 100 mg ONCE ONCE IV PUSH Last administered on 03/25/17 22:22; Start 03/25/17 at 21:15; Stop 03/25/17 at 21:16 ; Status DC Vecuronium [place] (Norcuron 10 Mg Inj) 10 mg ONCE ONCE IV PUSH Last administered on 03/25/17 22:22; Start 03/25/17 at 21:15; Stop 03/25/17 at 21:16 ; Status DC Dexamethasone Sodium Phosphate 10 mg 10 mg ONCE ONCE IV PUSH Last administered on 03/25/17 22:21; Start 03/25/17 at 21:15; Stop 03/25/17 at 21:16 ; Status DC Ceftriaxone Sodium 2000 mg/ Sodium Chloride 100 ml @ 200 mls/hr ONCE STAT IV Last administered on 03/25/17 22:21; Start 03/25/17 at 21:06; Stop 03/25/17 at 21:35; Status DC Vancomycin HCl/ Sodium Chloride (Vancomycin Inj/ NS 250 ml Inj) 261.5 ml @ 250 mls/hr ONCE ONCE IV Last administered on 03/26/17 00:59; Start 03/25/17 at 21 :15; Stop 03/25/17 at 22:17; Status DC Naloxone HCl 0.4 mg 0.4 mg ONCE ONCE IV PUSH Last administered on 03/25/17 22 :22; Start 03/25/17 at 21:15; Stop 03/25/17 at 21:16; Status DC Fentanyl Citrate 250 ml @ As Directed STK-MED ONCE .ROUTE Last administered on 03/25/17 22:24; Start 03/25/17 at 21:55; Stop 03/25/17 at 21:56; Status DC Potassium Phosphate/Sodium Chloride (Potassium Phosphate Inj/NS 250 ml Inj) 260 ml @ 43.333 mls/ hr ONCE ONCE IV ; Start 03/25/17 at 22:15; Stop 03/26/17 at 04:14; Status DC Midazolam HCl (Versed Inj) 2 mg ONCE ONCE IV PUSH Last administered on 22:23; Start 03/25/17 at 22:15; Stop 03/25/17 at 22:17; Status DC Vecuronium [place] 10 mg 10 mg ONCE ONCE IV PUSH Last administered on 22:35; Start 03/25/17 at 22:30; Stop 03/25/17 at 22:31; Status DC Sodium Chloride 1,000 ml @ 1,000 mls/hr Q1H IV Last administered on 03/25/17 23:50; Start 03/25/17 at 22:50; Stop 03/26/17 at 00:49; Status DC Sodium Chloride 1,000 ml @ 250 mls/hr Q4H IV Last administered on 03/26/17 06 :50; Start 03/25/17 at 22:50; Stop 03/26/17 at 22:29; Status DC Dextrose/Sodium Chloride 1,000 ml @ 200 mls/hr Q5H IV Last administered on 17:09; Start 03/25/17 at 22:50; Stop 03/26/17 at 22:29; Status DC Insulin Human Regular 100 units/ Sodium Chloride 100 ml @ 0 mls/hr TITRATE IV Last administered on 03/26/17 08:54; Start 03/25/17 at 23:00; Stop 03/26/17 at 23:00; Status DC Potassium Chloride 100 ml @ 100 mls/hr Q1H PRN IV SEE LABEL COMMENTS; Start at 23:00; Stop 03/26/17 at 22:29; Status DC Potassium Chloride 100 ml @ 50 mls/hr Q2H PRN IV SEE LABEL COMMENTS; Start at 23:00; Stop 03/26/17 at 22:29; Status DC Potassium Chloride 100 ml @ 100 mls/hr Q1H PRN IV SEE LABEL COMMENTS; Start at 23:00; Stop 03/26/17 at 22:29; Status DC Potassium Chloride 100 ml @ 100 mls/hr Q1H PRN IV SEE LABEL COMMENTS; Start at 23:00; Stop 03/26/17 at 22:29; Status DC Potassium Chloride 100 ml @ 50 mls/hr Q2H PRN IV SEE LABEL COMMENTS; Start at 23:00; Stop 03/26/17 at 22:29; Status DC Potassium Chloride 100 ml @ 50 mls/hr Q2H PRN IV SEE LABEL COMMENTS; Start at 23:00; Stop 03/26/17 at 22:29; Status DC Potassium Chloride 100 ml @ 50 mls/hr Q2H PRN IV SEE LABEL COMMENTS; Start at 23:00; Stop 03/26/17 at 22:29; Status DC Potassium Chloride (KCl 20 Meq Premix Inj) 100 ml @ 50 mls/hr Q2H PRN IV SEE LABEL COMMENTS; Start 03/25/17 at 23:00; Stop 03/26/17 at 22:30; Status DC Sodium Bicarbonate (Sodium Bicarbonate 8.4% Inj) 100 meq UNSCH PRN IV SEE LABEL COMMENTS; Start 03/25/17 at 23:00; Stop 03/26/17 at 22:30; Status DC Sodium Bicarbonate 50 meq 50 meq UNSCH PRN IV SEE LABEL COMMENTS; Start at 23:00; Stop 03/26/17 at 22:30; Status DC Sodium Phosphate/ Sodium Chloride (Sodium Phosphate Inj/NS Inj) 105 ml @ 25 mls /hr UNSCH PRN IV SEE LABEL COMMENTS; Start 03/25/17 at 23:00; Stop 03/26/17 at 22:30; Status DC Miscellaneous Information 1 Q361D XX ; Start 03/25/17 at 23:00 Chlorhexidine Gluconate (Chlorhexidine 2% Cloth) Taper DAILY@04 TOP Last administered on 03/29/17t 01:08; Start 03/26/17 at 04:00; Stop 03/22/18 at 03:59 Chlorhexidine Gluconate (Chlorhexidine 2% Cloth) 3 pack UNSCH PRN TOP HYGIENIC CARE; Start 03/25/17 at 23:00 Acetaminophen (Tylenol) 650 mg Q4H PRN PO fever Last administered on 03/28/17 15:16; Start 03/26/17 at 04:00 Diphenhydramine HCl (Benadryl Inj) 12.5 mg Q6H PRN IV PUSH nausea Last administered on 03/31/17 08:44; Start 03/26/17 at 08:15 Insulin Detemir (Levemir Inj) 30 units HS SQ Last administered on 03/26/17 19: 42; Start 03/26/17 at 21:00; Stop 03/27/17 at 08:28; Status DC Miscellaneous Information 1 ONCE ONCE .XX ; Start 03/26/17 at 22:15; Stop 03/26 at 22:30; Status DC Miscellaneous Information 1 ONCE ONCE .XX ; Start 03/26/17 at 22:15; Stop 03/26 at 22:30; Status DC Insulin Human Regular (NovoLIN R SUPPLEMENTAL SCALE) 1 ACHS SLIDING SCALE SQ ; Start 03/27/17 at 07:00; Stop 03/27/17 at 08:28; Status DC Dextrose (D50w (Vial) Inj) 50 ml UNSCH PRN IV HYPOGLYCEMIA-SEE COMMENTS Last administered on 03/27/17 04:56; Start 03/26/17 at 22:15 Glucagon 1 mg 1 mg UNSCH PRN OTHER HYPOGLYCEMIA-SEE COMMENTS; Start 03/26/17 at 22:15 Potassium Chloride 100 ml @ 50 mls/hr Q2H IV Last administered on 03/27/17 01 :56; Start 03/27/17 at 00:00; Stop 03/27/17 at 09:00; Status DC Potassium Chloride 100 ml @ 50 mls/hr Q2H PRN IV For Potassium 2.8 - 3.2 mEq/L ; Start 03/27/17 at 00:00; Stop 03/29/17 at 16:39; Status DC Potassium Chloride (KCl 20 Meq Premix Inj) 100 ml @ 50 mls/hr Q2H PRN IV For Potassium 2.8 - 3.2 mEq/L Last administered on 03/28/17 11:21; Start 03/27/17 at 00:00; Stop 03/29/17 at 16:39; Status DC Potassium Bicarb/ Potassium Chloride 50 meq 50 meq UNSCH PRN PO For Potassium 3.3 - 3.5 mEq/L; Start 03/27/17 at 00:00; Stop 03/29/17 at 16:39; Status DC Potassium Chloride 100 ml @ 25 mls/hr UNSCH PRN IV For Potassium 3.3 - 3.5 mEq /L; Start 03/27/17 at 00:00; Stop 03/29/17 at 16:39; Status DC Potassium Chloride 100 ml @ 50 mls/hr Q2H PRN IV For Potassium 3.3 - 3.5 mEq/L ; Start 03/27/17 at 00:00; Stop 03/29/17 at 16:39; Status DC Magnesium Sulfate/ Sodium Chloride (Magnesium Sulfate Inj/NS Inj) 100 ml @ 50 mls/hr UNSCH PRN IV For Magnesium 0.9 - 1.1 mg/dL; Start 03/27/17 at 00:00; Stop 03/29/17 at 16:39; Status DC Magnesium Oxide 800 mg 800 mg UNSCH PRN PO For Magnesium 1.2 - 1.6 mg/dL; Start 03/27/17 at 00:00; Stop 03/29/17 at 16:39; Status DC Magnesium Sulfate/ Sodium Chloride (Magnesium Sulfate Inj/NS Inj) 100 ml @ 50 mls/hr UNSCH PRN IV For Magnesium 1.2 - 1.6 mg/dL; Start 03/27/17 at 00:00; Stop 03/29/17 at 16:39; Status DC Potassium Phosphate 2000 mg 2,000 mg Q4H PRN PO For Phosphorus < 2.5 mg/dL; Start 03/27/17 at 00:00; Stop 03/29/17 at 16:39; Status DC Sodium Phosphate/ Sodium Chloride (Sodium Phosphate Inj/NS 250 ml Inj) 250 ml @ 42 mls/hr UNSCH PRN IV For Phosphorus < 2.5 mg/dL; Start 03/27/17 at 00:00; Stop 03/29/17 at 16:39; Status DC Potassium Phosphate 2000 mg 2,000 mg UNSCH PRN PO/TUBE SEE LABEL COMMENTS; Start 03/27/17 at 00:00; Stop 03/29/17 at 16:39; Status DC Potassium Phosphate/Sodium Chloride (Potassium Phosphate Inj/NS 250 ml Inj) 260 ml @ 42 mls/hr UNSCH PRN IV SEE LABEL COMMENTS Last administered on 03/27/17 01:50; Start 03/27/17 at 00:00; Stop 03/29/17 at 16:39; Status DC Insulin Detemir (Levemir Inj) 10 units HS SQ Last administered on 03/29/17 21: 22; Start 03/27/17 at 21:00; Stop 03/30/17 at 10:18; Status DC Insulin Aspart 1 1 ACHS SLIDING SCALE SQ Last administered on 03/31/17 08:53 ; Start 03/27/17 at 11:00 Piperacillin Sod/ Tazobactam Sod (Zosyn 3.375 Gm Premix) 50 ml @ 100 mls/hr Q8H IV Last administered on 03/29/17 07:49; Start 03/27/17 at 10:00; Stop at 20:14; Status DC Dextrose 50 ml 50 ml STK-MED ONCE .ROUTE Last administered on 03/27/17 11:37; Start 03/27/17 at 11:33; Stop 03/27/17 at 11:34; Status DC Dextrose 1,000 ml @ 84 mls/hr [id number] IV Last administered on 03/28/17 11:22 ; Start 03/27/17 at 13:00; Stop 03/28/17 at 16:48; Status DC Potassium Chloride (KCl 20 Meq Premix Inj) 100 ml @ 50 mls/hr BOLUS ONCE IV Last administered on 03/27/17 17:40; Start 03/27/17 at 14:30; Stop 03/27/17 at 16:29; Status DC Ibuprofen (Motrin) 600 mg Q8HR PRN PO pain Last administered on 03/31/17 02:38 ; Start 03/28/17 at 09:00 Potassium Chloride (KCl) 30 meq Q12HR PO Last administered on 03/31/17 08:45; Start 03/28/17 at 15:00 Propranolol HCl (Inderal) 10 mg DAILY PO Last administered on 03/31/17 08:45; Start 03/29/17 at 14:00 Pantoprazole Sodium (Protonix) 20 mg DAILY PO ; Start 7/25/17 at 16:55; Stop at 18:18; Status DC Pantoprazole Sodium (Protonix) 20 mg DAILY PO Last administered on 03/31/17 08 :45; Start 03/29/17 at 19:00 Insulin Detemir (Levemir Inj) 10 units BID SQ Last administered on 03/31/17 08 :54; Start 03/30/17 at 21:00 Insulin Detemir (Levemir Inj) 10 units ONCE ONCE SQ Last administered on 11:22; Start 03/30/17 at 10:45; Stop 03/30/17 at 10:46; Status DC A/P Assessment and Plan Respiratory failure- resolved. 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 Altered mental status- resolved. - CT head negative - Urine drug screen negative - CSF Gram stain negative and initial growth NGTD - low current suspicion for meningitis--> CSF no growth in 48 hrs - 09/08 tubes staph, resumed empiric abx, blood ctx re-drawn and have been negative to date - altered mental status likely secondary to DKA-which has resolved. Diabetic Keto-Acidosis- resolved. - now that the patient is eating: increased levemir to 10 units bid, low dose sliding scale - diabetic education -consulted strip tank tender - A1C 10.4 Bacteremia - blood cultures 03/25 1 tubes growing staph epidermis. likely contamination. - no current source of infection at this time -dc'ed antibiotics. Asthma - No exacerbation - DuoNeb's when necessary ADHD - stable DVT prophylaxis - encourage out of bed - Teds and SCDs Discharge Planning dc home later this afternoon if blood sugar stable. see med list. f/u; pcp. d/w the patient and Jose Talley MD Mar 31, 2017 09:32
--- NOTE | 2017-03-31 09:35 | HHI.DS ---
Discharge Summary Admission Date Mar 25, 2017 at 22:18 Discharge Date: Mar 31, 2017 Admitting Diagnosis Vent Dependence Respiratory Failure, Altered Mental Status (1) DKA (diabetic ketoacidoses) ICD Code: E13.10 Diagnosis: Principal (2) Altered mental status, unspecified ICD Code: R41.82 Diagnosis: Principal Procedures intubation Brief History - From Admission 21-year-old female with history of type 1 diabetes on insulin, ADHD, asthma, presents to emergency room for altered mental status. As per EMS, patient's family called as patient was last seen normal 4 days ago. Reports that she was found unresponsive in her bed and foaming at the mouth.. EMS reported a BS of 211. Reports that her GSC was a 7 on scene as she was responding to painful stimuli. In the emergency department patient's GCS was 5 and she was intubated for an airway protection by ED attending. CBC/BMP: 03/31/17 0420 03/31/17 0420 Significant Findings Laboratory Tests Test 03/28/17 03/29/17 03/30/17 03/31/17 09:45 05:53 05:06 04:20 White Blood Count 3.4 TH/MM3 3.8 TH/MM3 (4.0-11.0) (4.0-11.0) Lymphocytes (%) (Auto) 66.4 % (9.0-44.0) Neutrophils # (Auto) 0.8 TH/MM3 (1.8-7.7) Lymphocytes % 60 % (9-44) Monocytes % 11 % (0-8) Neutrophils # (Manual) 1.0 TH/MM3 (1.8-7.7) Potassium Level 3.1 MEQ/L (3.5-5.1) Chloride Level 108 MEQ/L 108 MEQ/L (98-107) (98-107) Blood Urea Nitrogen 2 MG/DL (7-18) Creatinine 0.37 MG/DL 0.47 MG/DL (0.50-1.00) (0.50-1.00) Random Glucose 109 MG/DL 420 MG/DL 258 MG/DL 163 MG/DL (74-106) (74-106) (74-106) (74-106) Hemoglobin A1c 10.4 % (4.3-6.0) Red Blood Count 3.89 MIL/MM3 (4.00-5.30) Hematocrit 34.6 % (35.0-46.0) Imaging Last Impressions Head CT 03/25/172058 Signed Impressions: Service Date/Time: Saturday, March 25, 2017 21:23 - CONCLUSION: Normal examination. Roge Macias MD Chest X-Ray 03/25/172055 Signed Impressions: Service Date/Time: Saturday, March 25, 2017 20:58 - CONCLUSION: Endotracheal tube and enteric tubes are noted as above. Roge Macias MD PE at Discharge GENERAL: This is a well-nourished, well-developed patient, in no apparent distress. CARDIOVASCULAR: Regular rate and regular rhythm without murmurs, gallops, or rubs. RESPIRATORY: Clear to auscultation. Breath sounds equal bilaterally. No wheezes , rales, or rhonchi. GASTROINTESTINAL: Abdomen soft, non-tender, nondistended. Normal, active bowel sounds MUSCULOSKELETAL: Extremities without clubbing, cyanosis, or edema. NEURO: Alert & Oriented x4 to person, place, time, situation. Moves all ext x4 Hospital Course Respiratory failure- resolved. 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 Altered mental status- resolved. - CT head negative - Urine drug screen negative - CSF Gram stain negative and initial growth NGTD - low current suspicion for meningitis--> CSF no growth in 48 hrs - 1/4 tubes staph, resumed empiric abx, blood ctx re-drawn and have been negative to date - altered mental status likely secondary to DKA-which has resolved. Diabetic Keto-Acidosis- resolved. - now that the patient is eating: increased levemir to 10 units bid, low dose sliding scale - diabetic education -consulted reporting developer - A1C 10.4 Bacteremia - blood cultures 03/25 1/4 tubes growing staph epidermis. likely contamination. - no current source of infection at this time -dc'ed antibiotics. Asthma - No exacerbation - DuoNeb's when necessary ADHD - stable DVT prophylaxis - encourage out of bed - Teds and SCDs Pt Condition on Discharge: Stable Discharge Disposition: Discharge Home Discharge Time: <= 30 minutes Discharge Instructions DIET: Follow Instructions for: Diabetic Diet Activities you can perform: Regular-No Restrictions Follow up Referrals: PCP Follow-up New Medications: Insulin Aspart Inj (Novolog Inj) 100 Unit/Ml Inj 1 UNIT SQ ACHS SLIDING SCALE accu-check AC/HS with Novolog sliding scale coverage; 150-200 two units 201-250 four units 251-300 six units 301-350 eight units 351-400 ten units inform PCP if < 70 or > 400. diabetes Days 30 Ref 0 INJECTION Insulin Detemir Inj (Levemir Inj) 1,000 unit/ 10 ML Vial 10 UNITS SQ BID diabetes Days 30 Ref 0 INJECTION Continued Medications: Propranolol (Propranolol) 10 Mg Tab 10 MG PO DAILY #60 Ref 0 TAB Jose Bland MD Mar 31, 2017 09:34
[2017-03-31 12:08] VITALS: BP 116/69; PULSE 67; RESP 18; TEMP 98.6; O2SAT 98
[2017-03-31 16:01] VITALS: BP 116/68; PULSE 67; RESP 16; TEMP 98.3; O2SAT 100
== END 2017-03-31 17:47 | disposition home or self-care (01) | DRG 208 ==
LOC: NEPC 20:41 → NEDA 22:18 → HIMN 23:15 → H6EA 03-29 16:30
PROVIDERS: ADMIT Internal Medicine; ATTEND Internal Medicine
PROC: 5A1935Z Respiratory Ventilation, Less than 24 Consecutive Hours (ICD-10-PCS; principal; 2017-03-25)
PROC: 0BH17EZ Insertion of Endotracheal Airway into Trachea, Via Natural or Artificial Opening (ICD-10-PCS; 2017-03-25)
PROC: 009U3ZX Drainage of Spinal Canal, Percutaneous Approach, Diagnostic (ICD-10-PCS; 2017-03-25)
DX: J96.90 Respiratory failure, unspecified, unspecified whether with hypoxia or hypercapnia (principal); E10.10 Type 1 diabetes mellitus with ketoacidosis without coma; E10.649 Type 1 diabetes mellitus with hypoglycemia without coma; J45.909 Unspecified asthma, uncomplicated; R40.2432 Glasgow coma scale score 3-8, at arrival to emergency department; F90.9 Attention-deficit hyperactivity disorder, unspecified type; Z79.4 Long term (current) use of insulin
CPT/HCPCS: 31500; 36600; 62270; 70450; 71010; 80048; 80053; 80307; 81001; 82010; 82550; 82805; 82945; 82948; 83036; 83605; 83690; 83735; 84100; 84132; 84157; 84484; 84702; 85007; 85025; 85027; 85610; 85730; 86403; 87040; 87070; 87186; 87205; 87529; 87641; 89051; 93005; 94002; 94150; 94667; J0330; J0696; J1100; J1200; J1815; J1817; J2250; J2310; J2543; J3010; J3370; J3480; J7030; J7042; J7050; J7070

== ENCOUNTER 2017-07-01 16:45 | Emergency (ER) | payer MEDICAID ==
[~2017-07-01] VITALS: Ht 165.1 cm; Wt 46.0 kg
[~2017-07-01 16:45] MED LIST changes: -INSU100V SQ; +LEVEMIR SQ; -METH-703 OR; +NOVOLOGSS SQ; -PERC5TAB12 PO; +PROP10TA6 PO
[2017-07-01 16:47] VITALS: BP 110/76; PULSE 128; RESP 13; TEMP 98.5; O2SAT 99
[2017-07-01] MEDS ORDERED: LEVEMIR SQ (17:09)
[2017-07-01] MEDS ORDERED: MORP1TAB24 PO (17:09)
[2017-07-01] MEDS ORDERED: HUMALOG SQ (17:09)
[2017-07-01] MEDS ORDERED: SODIUM CHLOR 0.9% 1000 ML INJ 1,000 ML IV ONE (17:09)
[2017-07-01] MEDS ORDERED: MORPHINE SULFATE 4 MG/ML INJ IV PUSH ONE (17:15)
[2017-07-01] MEDS ORDERED: ONDANSETRON HCL 4 MG/2 ML VIAL IV PUSH ONE (17:15)
[2017-07-01] MEDS ORDERED: diphenhydrAMINE HCL 50 MG/ML VIAL IV PUSH ONE (17:15)
[2017-07-01] MEDS ORDERED: SODIUM CHLORIDE 0.9% FLUSH 10 ML FLUSH IVF PRN (17:15)
--- NOTE | 2017-07-01 17:16 | PD ---
HPI Chief Complaint: Fall Time Seen by Provider: 16:59 Travel History International Travel<30 days: No Contact w/Intl Traveler<30days: No Traveled to known affect area: No History of Present Illness HPI The patient is a 21-year-old female who presents to the emergency department for headache and neck pain after mechanical fall. The patient states she lives on the third floor, was walking up the stairs with her groceries when she fell backwards, losing her balance and fell down several stairs. The patient thinks that she "blacked out ", and when she awakened she was somewhat dizzy. The patient complains of a headache, left-sided neck pain, and low back pain. The patient does have a history of chronic low back pain and takes chronic pain medications on a daily basis. She denies any current chest pain, shortness breath, nausea, vomiting, or abdominal pain. Last menstrual cycle was one week ago. She denies any focal deficits. Symptoms are moderate, exacerbated after falling down the stairs, and there are no current alleviating factors. She does have a history of diabetes and DKA, states she took her Levemir 30 units this morning and last had insulin 9 units regular insulin/short acting insulin at lunch. PFSH Past Medical History ADHD: Yes Asthma: Yes Autoimmune Disease: No Blood Disorders: No Anxiety: No Depression: No Heart Rhythm Problems: No Cancer: No Cardiovascular Problems: No Chest Pain: No Cystic Fibrosis: No Diabetes: Yes Patient Takes Glucophage: No Diminished Hearing: No Gastrointestinal Disorders: No Genitourinary: No Headaches: Yes Hypertension: No Musculoskeletal: Yes (chronic back pain) Neurologic: No Psychiatric: Yes Reproductive: No Immunizations Current: No Migraines: No Seizures: No Sickle Cell Disease: No Sleep Apnea: No Thyroid Disease: No Ulcer: No ?: Not LMP: 06/24/17 : 2 Para: 1 Miscarriage: 0 : 0 Past Surgical History Abdominal Surgery: No Appendectomy: No Cardiac Surgery: No Section: Yes Cholecystectomy: No Ear Surgery: No Endocrine Surgery: No Eye Surgery: No Genitourinary Surgery: No Neurologic Surgery: No Oral Surgery: No Pacemaker: No Thoracic Surgery: No Other Surgery: Yes () Social History Alcohol Use: No Tobacco Use: No Substance Use: No Allergies-Medications (Allergen,Severity, Reaction): Coded Allergies: acetaminophen (Unverified Allergy, Severe, 07/01/17) ciprofloxacin (Unverified Allergy, Severe, 07/01/17) ketorolac (Unverified Allergy, Severe, 07/01/17) oxycodone (Unverified Allergy, Severe, 07/01/17) shellfish derived (Unverified Allergy, Severe, 07/01/17) Reported Meds & Prescriptions Reported Meds & Active Scripts Active Orphenadrine CR (Orphenadrine Citrate) 100 Mg Tab 100 Mg PO Q12HR Reported Morphine ER (Morphine Sulfate) 15 Mg Tab 15 Mg PO Q6HR Humalog Inj (Insulin Human Lispro) 1,000 Unit/10 Ml Vial 1-9 Units SQ ACHS Max dose at bedtime:( )units; sugars< 70,(0)units; sugars 150-199,(1)unit; sugars 200-249,(3)units; sugars 250-299,(5)units; sugars 300-349,(7)units; sugars more than 349,(9)units. Levemir Inj (Insulin Detemir) 1,000 unit/ 10 ML Vial 30 Units SQ BID Do not mix with any other Insulin. Review of Systems Except as stated in HPI: all other systems reviewed are Neg General / Constitutional: No: Fever HENT: Positive: Headaches, Neck Pain Cardiovascular: No: Chest Pain or Discomfort Respiratory: No: Shortness of Breath Gastrointestinal: No: Nausea, Vomiting, Abdominal Pain Genitourinary: No: Dysuria, Incontinence Musculoskeletal: Positive: Pain Neurologic: Positive: Dizziness, Headache, No: Paresthesia, Sensory Disturbance Physical Exam Narrative GENERAL: Awake, alert, pleasant 21-year-old female who appears her stated age and is in no acute respiratory distress. SKIN: Focused skin assessment warm/dry. HEAD: Atraumatic. Normocephalic. No visible cephalohematoma. EYES: Pupils equal and round. Pupils are 3 mm bilateral and reactive. EOMs are intact. ENT: No nasal bleeding or discharge. Mucous membranes pink and moist. NECK: Trachea midline. No JVD. Tenderness palpation over the left paravertebral muscles. CARDIOVASCULAR: Regular, tachycardic with a heart rate of 105. RESPIRATORY: No accessory muscle use. Clear to auscultation. Breath sounds equal bilaterally. GASTROINTESTINAL: Abdomen soft, non-tender, nondistended. No rebound tenderness. Back: Mild tenderness of the mid lumbar spine but no palpable step-offs. MUSCULOSKELETAL: No obvious deformities. No clubbing. No cyanosis. No edema. NEUROLOGICAL: Awake and alert. No obvious cranial nerve deficits. Motor grossly within normal limits. Normal speech. PSYCHIATRIC: Appropriate mood and affect; insight and judgment normal. Data Data Last Documented VS Vital Signs Date Time Temp Pulse Resp B/P (MAP) Pulse Ox O2 Delivery O2 Flow Rate FiO2 07/01/17 18:24 106 16 128/75 (92) 99 Room Air 07/01/17 16:47 98.5 Orders Orders Complete Blood Count With Diff (07/01/17 17:09) Comprehensive Metabolic Panel (07/01/17 17:09) Urinalysis - C+S If Indicated (07/01/17 17:09) Ecg Monitoring (07/01/17 17:09) Iv Access Insert/Monitor (07/01/17 17:09) Oximetry (07/01/17 17:09) Sodium Chloride 0.9% Flush (Ns Flush) (07/01/17 17:15) Sodium Chlor 0.9% 1000 Ml Inj (Ns 1000 M (07/01/17 17:09) Ct Brain W/O Iv Contrast(Rout) (07/01/17 ) Ct Cerv Spine W/O Contrast (07/01/17 ) Spine, Lumbar - Ltd (Ap & Lat) (07/01/17 ) Morphine Inj (Morphine Inj) (07/01/17 17:15) Ondansetron Inj (Zofran Inj) (07/01/17 17:15) Diphenhydramine Inj (Benadryl Inj) (07/01/17 17:15) Ed Urine Pregnancytest Poc (07/01/17 17:37) Ed Discharge Order (07/01/17 18:45) Insulin Aspart Inj (Novolog Inj) (07/01/17 18:45) Labs Laboratory Tests Test 07/01/17 17:30 White Blood Count 4.9 TH/MM3 Red Blood Count 3.94 MIL/MM3 Hemoglobin 11.9 GM/DL Hematocrit 35.6 % Mean Corpuscular Volume 90.4 FL Mean Corpuscular Hemoglobin 30.1 PG Mean Corpuscular Hemoglobin Concent 33.3 % Red Cell Distribution Width 13.4 % Platelet Count 295 TH/MM3 Mean Platelet Volume 8.9 FL Neutrophils (%) (Auto) 52.1 % Lymphocytes (%) (Auto) 39.3 % Monocytes (%) (Auto) 6.9 % Eosinophils (%) (Auto) 0.9 % Basophils (%) (Auto) 0.8 % Neutrophils # (Auto) 2.6 TH/MM3 Lymphocytes # (Auto) 1.9 TH/MM3 Monocytes # (Auto) 0.3 TH/MM3 Eosinophils # (Auto) 0.0 TH/MM3 Basophils # (Auto) 0.0 TH/MM3 CBC Comment DIFF FINAL Differential Comment Urine Color YELLOW Urine Turbidity CLEAR Urine pH 6.0 Urine Specific [place] 1.035 Urine Protein NEG mg/dL Urine Glucose (UA) 1000 mg/dL Urine Ketones 10 mg/dL Urine Occult Blood SMALL Urine Nitrite NEG Urine Bilirubin NEG Urine Urobilinogen LESS THAN 2.0 MG/DL Urine Leukocyte Esterase NEG Urine RBC 3 /hpf Urine WBC LESS THAN 1 /hpf Urine Squamous Epithelial Cells 3 /hpf Microscopic Urinalysis Comment CULT NOT INDICATED Blood Urea Nitrogen 15 MG/DL Creatinine 0.77 MG/DL Random Glucose 335 MG/DL Total Protein 7.2 GM/DL Albumin 3.3 GM/DL Calcium Level 9.6 MG/DL Alkaline Phosphatase 119 U/L Aspartate Amino Transf (AST/SGOT) 22 U/L Alanine Aminotransferase (ALT/SGPT) 26 U/L Total Bilirubin 0.2 MG/DL Sodium Level 135 MEQ/L Potassium Level 4.1 MEQ/L Chloride Level 99 MEQ/L Carbon Dioxide Level 26.5 MEQ/L Anion Gap 10 MEQ/L Estimat Glomerular Filtration Rate 113 ML/MIN [facility] Medical Decision Making Medical Screen Exam Complete: Yes Emergency Medical Condition: Yes Medical Record Reviewed: Yes Interpretation(s) Last Impressions Lumbar Spine X-Ray 07/01/17 0000 Signed Impressions: Service Date/Time: Saturday, July 01, 2017 17:40 - CONCLUSION: 1. Osseous structures of the lumbar spine are intact. 2. 3 small radiopaque densities in the posterior right pelvis are of uncertain significance a, but appear to be a related to bone. The density is characteristic of either metallic or calcific objects. Chavez Mart MD Head CT 07/01/17 0000 Signed Impressions: Service Date/Time: Saturday, July 01, 2017 17:26 - CONCLUSION: 1. Several small flecks of gas in the superior sagittal sinus, no evidence of skull fracture. 2. No evidence of intra-axial or extra-axial hemorrhage Chavez Mart MD Cervical Spine CT 07/01/17 0000 Signed Impressions: Service Date/Time: Saturday, July 01, 2017 17:27 - CONCLUSION: 1. Straightening of the upper cervical lordosis and curvature of the cervical spine towards the right. No evidence of compression fracture or spondylolisthesis. 2. Small marlene of gas in the left jugular vein. Chavez Mart MD Laboratory Tests Test 07/01/17 17:30 White Blood Count 4.9 TH/MM3 Red Blood Count 3.94 MIL/MM3 Hemoglobin 11.9 GM/DL Hematocrit 35.6 % Mean Corpuscular Volume 90.4 FL Mean Corpuscular Hemoglobin 30.1 PG Mean Corpuscular Hemoglobin Concent 33.3 % Red Cell Distribution Width 13.4 % Platelet Count 295 TH/MM3 Mean Platelet Volume 8.9 FL Neutrophils (%) (Auto) 52.1 % Lymphocytes (%) (Auto) 39.3 % Monocytes (%) (Auto) 6.9 % Eosinophils (%) (Auto) 0.9 % Basophils (%) (Auto) 0.8 % Neutrophils # (Auto) 2.6 TH/MM3 Lymphocytes # (Auto) 1.9 TH/MM3 Monocytes # (Auto) 0.3 TH/MM3 Eosinophils # (Auto) 0.0 TH/MM3 Basophils # (Auto) 0.0 TH/MM3 CBC Comment DIFF FINAL Differential Comment Urine Color YELLOW Urine Turbidity CLEAR Urine pH 6.0 Urine Specific [place] 1.035 Urine Protein NEG mg/dL Urine Glucose (UA) 1000 mg/dL Urine Ketones 10 mg/dL Urine Occult Blood SMALL Urine Nitrite NEG Urine Bilirubin NEG Urine Urobilinogen LESS THAN 2.0 MG/DL Urine Leukocyte Esterase NEG Urine RBC 3 /hpf Urine WBC LESS THAN 1 /hpf Urine Squamous Epithelial Cells 3 /hpf Microscopic Urinalysis Comment CULT NOT INDICATED Blood Urea Nitrogen 15 MG/DL Creatinine 0.77 MG/DL Random Glucose 335 MG/DL Total Protein 7.2 GM/DL Albumin 3.3 GM/DL Calcium Level 9.6 MG/DL Alkaline Phosphatase 119 U/L Aspartate Amino Transf (AST/SGOT) 22 U/L Alanine Aminotransferase (ALT/SGPT) 26 U/L Total Bilirubin 0.2 MG/DL Sodium Level 135 MEQ/L Potassium Level 4.1 MEQ/L Chloride Level 99 MEQ/L Carbon Dioxide Level 26.5 MEQ/L Anion Gap 10 MEQ/L Estimat Glomerular Filtration Rate 113 ML/MIN Differential Diagnosis Differential diagnosis includes mechanical fall, closed head injury, cervical fracture, intracranial hemorrhage, back fracture, contusion, hematoma, drug- seeking behavior, DKA. Narrative Course IV was established, labs are drawn and sent, and the patient was placed on cardiac telemetry monitoring and continuous pulse oximetry monitoring. The patient was administered morphine, Zofran, and Benadryl per her request for itching with the morphine as well as 1 L of IV fluids. CT of the brain and cervical spine were ordered. X-ray lumbar spine was ordered. CT of the cervical spine reveals straightening of the upper cervical lordosis and curvature of the cervical spine towards the right. No evidence of compression fracture or spondylolisthesis. Small marlene of gas in the left jugular vein. CT of the brain reveals several small flecks of gas in the superior sagittal sinus, no evidence of skull fracture. No evidence of intra-axial or extra- axial hemorrhage. As the patient appears to have small amounts of gas in the left jugular vein and within the superior sagittal sinus, the on-call neurosurgeon, Dr. Brasher, was paged at 6 PM. I discussed the patient with the neurosurgeon and the radiologist, the most likely etiology of this was from air being placed in an IV. The patient states she was just discharged from [facility] for DKA, denies any internal jugular access there, but does state she is receiving IVs. This most likely will reabsorb and the patient does not need to be admitted after discussion with radiology and neurosurgery. Patient's anion gap is 10, glucose is elevated at 335, UA only has 10 ketones. I do not believe this is DKA. The patient was given an insulin aspart 8 units subcutaneously. She will be discharged home is advised to follow-up with her primary physician. Diagnosis Primary Impression: Closed head injury Qualified Codes: S09.90XA - Unspecified injury of head, initial encounter Additional Impressions: Neck pain Hyperglycemia Patient Instructions: General Instructions Additional Instructions: Follow-up with your primary physician. Ice and/or heat to the affected area. Ibuprofen as needed. Med/Other Pt SpecificInfo: No Change to Meds Scripts Orphenadrine ER 12 HR (Orphenadrine CR) 100 Mg Tab 100 MG PO Q12HR for Muscle Spasm, #20 TAB 0 Refills Prov: Carlin Hill MD 07/01/17 Disposition: 01 DISCHARGE HOME Condition: Stable Carlin Hill MD Jul 01, 2017 17:16
--- NOTE | 2017-07-01 17:47 | RADRPT ---
EXAM DATE/TIME: 07/01/2017 17:26 [facility] COMPARISON: CT BRAIN W/O CONTRAST, March 25, 2017, 21:23. INDICATIONS : Trauma; fall. RADIATION DOSE: 56.35 CTDIvol (mGy) MEDICAL HISTORY : None SURGICAL HISTORY : None. ENCOUNTER: Initial ACUITY: 1 day PAIN SCALE: 5/10 LOCATION: cranial TECHNIQUE: Multiple contiguous axial images were obtained of the head. Using automated exposure control and adj ustment of the mA and/or kV according to patient size, radiation dose was kept as low as reasonably a chievable to obtain optimal diagnostic quality images. DICOM format image data is available electro nically for review and comparison. FINDINGS: CEREBRUM: The ventricles are normal for age. No evidence of midline shift, mass lesion, hemorrhage or acute in farction. Stable faint physiologic calcification in the basal ganglia bilaterally. No extra-axial f luid collections are seen. There are several small flecks of gas in the midline supratentorial brain which appear to localize into the superior sagittal sinus. POSTERIOR FOSSA: The cerebellum and brainstem are intact. The 4th ventricle is midline. The cerebellopontine angle i s unremarkable. EXTRACRANIAL: The visualized portion of the orbits is intact. SKULL: The calvaria is intact. No evidence of skull fracture. CONCLUSION: 1. Several small flecks of gas in the superior sagittal sinus, no evidence of skull fracture. 2. No evidence of intra-axial or extra-axial hemorrhage Chavez Mart MD on July 01, 2017 at 17:42 Board Certified Radiologist. This report was verified electronically.
--- NOTE | 2017-07-01 17:50 | RADRPT ---
EXAM DATE/TIME: 07/01/2017 17:27 [facility] COMPARISON: No previous studies available for comparison. INDICATIONS : Trauma; fall. RADIATION DOSE: 26.05 CTDIvol (mGy) MEDICAL HISTORY : None SURGICAL HISTORY : None. ENCOUNTER: Initial ACUITY: 1 day PAIN SCALE: 5/10 LOCATION: Bilateral neck TECHNIQUE: Volumetric scanning of the cervical spine was performed. Multiplanar reconstructions in the sagittal, coronal and oblique axial planes were performed. Using automated exposure control and adjustment o f the mA and/or kV according to patient size, radiation dose was kept as low as reasonably achievable to obtain optimal diagnostic quality images. DICOM format image data is available electronically f or review and comparison. FINDINGS: There is a marlene of gas seen in the region of the left jugular vein at the level of the base of the s kull. VERTEBRAE: Normal vertebral body height. ALIGNMENT: There is straightening of the cervical lordosis from C2-C4. No evidence of spondylolisthesis. Minim al curvature of the cervical spine towards the right in frontal projection. C2-C3: No fracture seen. The neural foramina are patent. C3-C4: No fracture seen. The neural foramina are patent. C4-C5: No fracture seen. The neural foramina are patent. C5-C6: No fracture seen. The neural foramina are patent. C6-C7: No fracture seen. The neural foramina are patent. C7-T1: No fracture seen. The neural foramina are patent. CONCLUSION: 1. Straightening of the upper cervical lordosis and curvature of the cervical spine towards the right . No evidence of compression fracture or spondylolisthesis. 2. Small marlene of gas in the left jugular vein. Chavez Mart MD on July 01, 2017 at 17:45 Board Certified Radiologist. This report was verified electronically.
--- NOTE | 2017-07-01 17:54 | RADRPT ---
EXAM DATE/TIME: 07/01/2017 17:40 [facility] COMPARISON: No previous studies available for comparison. INDICATIONS : Fell earlier today, complaints of lower back pain. MEDICAL HISTORY : None. SURGICAL HISTORY : None. ENCOUNTER: Initial ACUITY: 1 day PAIN SCORE: 6/10 LOCATION: Lumbar Spine FINDINGS: Two view examination was performed. There are five non-rib bearing vertebral bodies. The vertebral bodies are in normal alignment without evidence of subluxation or scoliosis. The disc spaces are jing ntained. The pedicles and transverse processes are intact. Bony mineralization is normal. No fract ure is identified. There are several small radiopaque densities measuring up to 5 mm in size located in the posterior right pelvis anterior to the right SI joint. These may be metallic or calcific. CONCLUSION: 1. Osseous structures of the lumbar spine are intact. 2. 3 small radiopaque densities in the posterior right pelvis are of uncertain significance a, but ap pear to be a related to bone. The density is characteristic of either metallic or calcific objects. Chavez Mart MD on July 01, 2017 at 17:50 Board Certified Radiologist. This report was verified electronically.
[2017-07-01 18:10] LABS: AUTOMATED NEUTROPHIL # 2.6 TH/MM3 (1.8-7.7); BASOPHIL % 0.8 % (0.0-2.0); EOSINOPHIL % 0.9 % (0.0-4.0); HEMATOCRIT 35.6 % (35.0-46.0); HEMOGLOBIN 11.9 GM/DL (11.6-15.3); LYMPH % 39.3 % (9.0-44.0); LYMPHOCYTE # 1.9 TH/MM3 (1.0-4.8); MEAN CELL VOLUME 90.4 FL (80.0-100.0); MEAN CORPUSCULAR HEMOGLOBIN 30.1 PG (27.0-34.0); MEAN CORPUSCULAR HGB CONC 33.3 % (32.0-36.0); MEAN PLATELET VOLUME 8.9 FL (7.0-11.0); MONO % 6.9 % (0.0-8.0); MONOCYTE # 0.3 TH/MM3 (0-0.9); NEUT % 52.1 % (16.0-70.0); PLATELET COUNT 295 TH/MM3 (150-450); RED BLOOD COUNT 3.94 MIL/MM3 (4.00-5.30); RED CELL DISTRIBUTION WIDTH 13.4 % (11.6-17.2); WHITE BLOOD COUNT 4.9 TH/MM3 (4.0-11.0)
[2017-07-01 18:13] LABS: BILIRUBIN, URINE NEG (NEG); BLOOD, URINE SMALL (NEG); GLUCOSE,URINE 1000 mg/dL (NEG); KETONE, URINE 10 mg/dL (NEG); NITRITE,URINE NEG (NEG); SQUAMOUS EPITHELIAL CELL URINE 3 /hpf (0-5); URINE COLOR YELLOW (YELLW/STRAW); URINE LEUKOCYTE ESTERASE NEG (NEG)
[2017-07-01 18:24] VITALS: BP 128/75; PULSE 106; RESP 16; O2SAT 99
[2017-07-01] MEDS ORDERED: ORPH100T2 PO (18:25)
[2017-07-01 18:41] LABS: ALBUMIN 3.3 GM/DL (3.4-5.0); AST (GOT) 22 U/L (15-37); BICARBONATE 26.5 MEQ/L (21.0-32.0); BLOOD UREA NITROGEN 15 MG/DL (7-18); CALCIUM 9.6 MG/DL (8.5-10.1); CHLORIDE 99 MEQ/L (98-107); CREATININE 0.77 MG/DL (0.50-1.00); GLOMERULAR FILTRATION RATE 113 ML/MIN (>89); GLUCOSE,RANDOM 335 MG/DL (74-106); SODIUM (NA) 135 MEQ/L (136-145)
[2017-07-01 18:45] LABS: ALKALINE PHOSPHATASE 119 U/L (45-117); ALT (GPT) 26 U/L (10-53); TOTAL BILIRUBIN ADULT 0.2 MG/DL (0.2-1.0); TOTAL PROTEIN 7.2 GM/DL (6.4-8.2)
[2017-07-01] MEDS ORDERED: INSULIN ASPART 1,000 UNITS/10 ML VIAL SQ ONE (18:45)
== END 2017-07-01 19:19 | disposition home or self-care (01) ==
LOC: NEPC 16:45
DX: S09.90XA Unspecified injury of head, initial encounter (principal); M54.2 Cervicalgia; W10.9XXA Fall (on) (from) unspecified stairs and steps, initial encounter; Y92.039 Unspecified place in apartment as the place of occurrence of the external cause; G89.29 Other chronic pain; E11.10 Type 2 diabetes mellitus with ketoacidosis without coma; Z79.4 Long term (current) use of insulin
CPT/HCPCS: 70450; 72100; 72125; 80053; 81001; 84703; 85025; 96361; 96372; 96374; 96375; 99285; J1200; J1815; J2270; J2405; J7030

== ENCOUNTER 2017-11-26 18:41 | Emergency (ER) | payer MEDICAID ==
[~2017-11-26 18:41] MED LIST changes: +HUMALOG SQ; +MORP1TAB24 PO; -NOVOLOGSS SQ; +ORPH100T2 PO; -PROP10TA6 PO
[2017-11-26 19:12] VITALS: BP 119/56; PULSE 110; RESP 16; TEMP 98.6; O2SAT 100
== END 2017-11-26 23:55 | disposition left against medical advice (07) ==
LOC: NED 18:41
DX: Z53.21 Procedure and treatment not carried out due to patient leaving prior to being seen by health care provider (principal)
CPT/HCPCS: 99281

== ENCOUNTER 2017-12-31 16:21 | Emergency (ER) | payer MEDICAID ==
[~2017-12-31] VITALS: Ht 165.1 cm; Wt 53.5 kg
[2017-12-31 16:26] VITALS: BP 115/67; PULSE 99; RESP 18; TEMP 98.4; O2SAT 100
--- NOTE | 2017-12-31 16:57 | PD ---
HPI Chief Complaint: Abdominal Pain Time Seen by Provider: 16:37 Travel History International Travel<30 days: No Contact w/Intl Traveler<30days: No Traveled to known affect area: No History of Present Illness HPI 22-year-old -[place] female presents emergency department with lower abdominal cramping. She states she had a positive test several days ago. Patient has history of miscarriage in the past requiring D&C. Patient denies nausea, vomiting, urinary symptoms, vaginal discharge or bleeding. She is concerned about possible ectopic . Pain is 7 out of 10 and cramping. Last menstrual period was on November 19, 2017. She is allergic to acetaminophen, Cipro, ketorolac, oxycodone, and shellfish. PFSH Past Medical History ADHD: Yes Asthma: Yes Autoimmune Disease: No Blood Disorders: No Anxiety: No Depression: No Heart Rhythm Problems: No Cancer: No Cardiovascular Problems: No Chest Pain: No Cystic Fibrosis: No Diabetes: Yes Diminished Hearing: No Gastrointestinal Disorders: No Genitourinary: No Headaches: Yes Hypertension: No Musculoskeletal: Yes (chronic back pain) Neurologic: No Psychiatric: Yes Reproductive: No Immunizations Current: No Migraines: No Seizures: No Sickle Cell Disease: No Sleep Apnea: No Thyroid Disease: No Ulcer: No ?: LMP: 11/19/17 : 2 Para: 1 Miscarriage: 1 : 0 Dilation and Curettage (D&C): Yes Past Surgical History Abdominal Surgery: No Appendectomy: No Cardiac Surgery: No Section: Yes Cholecystectomy: No Ear Surgery: No Endocrine Surgery: No Eye Surgery: No Genitourinary Surgery: No Neurologic Surgery: No Oral Surgery: No Pacemaker: No Thoracic Surgery: No Other Surgery: Yes () Social History Alcohol Use: No (OCC) Tobacco Use: No Substance Use: No Allergies-Medications (Allergen,Severity, Reaction): Coded Allergies: acetaminophen (Unverified Allergy, Severe, 12/31/17) ciprofloxacin (Unverified Allergy, Severe, 12/31/17) ketorolac (Unverified Allergy, Severe, 12/31/17) oxycodone (Unverified Allergy, Severe, 12/31/17) shellfish derived (Unverified Allergy, Severe, 12/31/17) Reported Meds & Prescriptions Reported Meds & Active Scripts Active Orphenadrine CR (Orphenadrine Citrate) 100 Mg Tab 100 Mg PO Q12HR Reported Morphine ER (Morphine Sulfate) 15 Mg Tab 15 Mg PO Q6HR Humalog Inj (Insulin Human Lispro) 1,000 Unit/10 Ml Vial 1-9 Units SQ ACHS Max dose at bedtime:( )units; sugars< 70,(0)units; sugars 150-199,(1)unit; sugars 200-249,(3)units; sugars 250-299,(5)units; sugars 300-349,(7)units; sugars more than 349,(9)units. Levemir Inj (Insulin Detemir) 1,000 unit/ 10 ML Vial 30 Units SQ BID Do not mix with any other Insulin. Review of Systems Except as stated in HPI: all other systems reviewed are Neg General / Constitutional: No: Fever, Chills Eyes: No: Visual changes HENT: No: Headaches Cardiovascular: No: Chest Pain or Discomfort Respiratory: No: Shortness of Breath Gastrointestinal: No: Abdominal Pain Genitourinary: Positive: Pelvic Pain, No: Urgency, Frequency, Dysuria, Discharge, Vaginal Bleeding Musculoskeletal: No: Pain Skin: No Rash Neurologic: No: Weakness Psychiatric: No: Depression Endocrine: No: Polydipsia Hematologic/Lymphatic: No: Easy Bruising Physical Exam Narrative GENERAL: Patient appears in mild to moderate distress. She is anxious. SKIN: Warm and dry. Normal color. Normal turgor HEAD: Atraumatic. Normocephalic. EYES: Pupils equal and round. No scleral icterus. No injection or drainage. ENT: No nasal bleeding or discharge. Mucous membranes pink and moist. Pharynx is clear. Airways patent. NECK: Trachea midline. Supple nontender. CARDIOVASCULAR: Regular rate and rhythm. RESPIRATORY: No accessory muscle use. Clear to auscultation. Breath sounds equal bilaterally. GASTROINTESTINAL: Abdomen soft, non-tender, nondistended. Hepatic and splenic margins not palpable. Patient is mild to moderate suprapubic tenderness with palpation. No CVA tenderness. MUSCULOSKELETAL: Extremities without clubbing, cyanosis, or edema. No obvious deformities. NEUROLOGICAL: Awake and alert. No obvious cranial nerve deficits. Motor grossly within normal limits. Five out of 5 muscle strength in the arms and legs. Normal speech. PSYCHIATRIC: Appropriate mood and affect; insight and judgment normal. Data Data Last Documented VS Vital Signs Date Time Temp Pulse Resp B/P (MAP) Pulse Ox O2 Delivery O2 Flow Rate FiO2 12/31/17 16:26 98.4 99 18 115/67 (83) 100 Orders Orders Urinalysis - C+S If Indicated (12/31/17 16:49) Beta Hcg (Quant/Titer) (12/31/17 16:55) Complete Blood Count With Diff (12/31/17 16:55) Comprehensive Metabolic Panel (12/31/17 16:55) Us Pelvis (Ques Preg/Ectopic) (12/31/17 ) Labs Laboratory Tests Test 12/31/17 17:10 White Blood Count 4.8 TH/MM3 Red Blood Count 4.21 MIL/MM3 Hemoglobin 11.9 GM/DL Hematocrit 35.9 % Mean Corpuscular Volume 85.3 FL Mean Corpuscular Hemoglobin 28.4 PG Mean Corpuscular Hemoglobin Concent 33.3 % Red Cell Distribution Width 13.2 % Platelet Count 253 TH/MM3 Mean Platelet Volume 8.2 FL Neutrophils (%) (Auto) 47.2 % Lymphocytes (%) (Auto) 39.7 % Monocytes (%) (Auto) 9.6 % Eosinophils (%) (Auto) 2.9 % Basophils (%) (Auto) 0.6 % Neutrophils # (Auto) 2.3 TH/MM3 Lymphocytes # (Auto) 1.9 TH/MM3 Monocytes # (Auto) 0.5 TH/MM3 Eosinophils # (Auto) 0.1 TH/MM3 Basophils # (Auto) 0.0 TH/MM3 CBC Comment DIFF FINAL Differential Comment Urine Color YELLOW Urine Turbidity CLEAR Urine pH 6.0 Urine Specific [place] 1.021 Urine Protein TRACE mg/dL Urine Glucose (UA) 1000 mg/dL Urine Ketones NEG mg/dL Urine Occult Blood SMALL Urine Nitrite NEG Urine Bilirubin NEG Urine Urobilinogen LESS THAN 2.0 MG/DL Urine Leukocyte Esterase SMALL Urine RBC 7 /hpf Urine WBC 5 /hpf Urine Squamous Epithelial Cells 2 /hpf Urine Bacteria RARE /hpf Urine Mucus FEW /lpf Microscopic Urinalysis Comment CULT NOT INDICATED MDM Medical Decision Making Medical Screen Exam Complete: Yes Emergency Medical Condition: Yes Medical Record Reviewed: Yes Differential Diagnosis Abdominal cramping. Early . Possible ectopic. Narrative Course Patient appears medically stable at time of exam. Labs ordered including CBC, CMP, serum hCG, and urinalysis. Pelvic ultrasound is ordered to rule out ectopic. CBC is unremarkable. Urinalysis is unremarkable. CMP and hCG is pending. 1900 hrs. CARE is turned over to [facility] for final disposition. Condition: Stable Jeff Peralta Dec 31, 2017 16:57
[2017-12-31 17:58] LABS: AUTOMATED NEUTROPHIL # 2.3 TH/MM3 (1.8-7.7); BASOPHIL % 0.6 % (0.0-2.0); EOSINOPHIL # 0.1 TH/MM3 (0-0.4); EOSINOPHIL % 2.9 % (0.0-4.0); HEMATOCRIT 35.9 % (35.0-46.0); HEMOGLOBIN 11.9 GM/DL (11.6-15.3); LYMPH % 39.7 % (9.0-44.0); LYMPHOCYTE # 1.9 TH/MM3 (1.0-4.8); MEAN CELL VOLUME 85.3 FL (80.0-100.0); MEAN CORPUSCULAR HEMOGLOBIN 28.4 PG (27.0-34.0); MEAN CORPUSCULAR HGB CONC 33.3 % (32.0-36.0); MEAN PLATELET VOLUME 8.2 FL (7.0-11.0); MONO % 9.6 % (0.0-8.0); MONOCYTE # 0.5 TH/MM3 (0-0.9); NEUT % 47.2 % (16.0-70.0); PLATELET COUNT 253 TH/MM3 (150-450); RED BLOOD COUNT 4.21 MIL/MM3 (4.00-5.30); RED CELL DISTRIBUTION WIDTH 13.2 % (11.6-17.2); WHITE BLOOD COUNT 4.8 TH/MM3 (4.0-11.0)
[2017-12-31 18:16] LABS: BACTERIA, URINE RARE /hpf; BILIRUBIN, URINE NEG (NEG); BLOOD, URINE SMALL (NEG); GLUCOSE,URINE 1000 mg/dL (NEG); KETONE, URINE NEG (NEG); MUCUS URINE FEW /lpf (OCC); NITRITE,URINE NEG (NEG); SQUAMOUS EPITHELIAL CELL URINE 2 /hpf (0-5); URINE COLOR YELLOW (YELLW/STRAW); URINE LEUKOCYTE ESTERASE SMALL (NEG)
[2017-12-31 18:29] LABS: ALBUMIN 3.1 GM/DL (3.4-5.0); BICARBONATE 21.2 MEQ/L (21.0-32.0); CREATININE 0.64 MG/DL (0.50-1.00)
[2017-12-31 19:00] LABS: CALCIUM-PROTEIN CORRECTED 7.4 MG/DL (8.5-10.1); TOTAL BILIRUBIN ADULT 0.2 MG/DL (0.2-1.0); TOTAL PROTEIN 6.4 GM/DL (6.4-8.2)
[2017-12-31] MEDS ORDERED: CALCIUM CARBONATE 1.25 GM (CA 500 MG) TAB PO ONE (20:00)
--- NOTE | 2017-12-31 20:04 | RADRPT ---
EXAM DATE/TIME: 12/31/2017 19:03 [place] COMPARISON: No previous studies available for comparison. INDICATIONS : Cramping x 2 days. Evaluate for ectopic. LAB(S): Beta-hC,787 MEDICAL HISTORY : . Diabetes mellitus type 1. SURGICAL HISTORY : section. Dilation and Curettage. ENCOUNTER: Initial ACUITY: 2 days PAIN SCORE: 2/10 LOCATION: pelvis MEASUREMENTS: UTERUS: 9.6 x 7.2 x 4.9 cm ENDOMETRIAL STRIPE: 10 mm RIGHT OVARY: 4.0 x 4.0 x 2.5 cm LEFT OVARY: 4.3 x 1.7 x 1.3 cm cm FREE FLUID: Yes Trace amount. CROWN RUMP LENGTH: 0.25 cm = 5 WKS 6 DAYS FHR: Not visualized. FINDINGS: UTERUS: Gestational sac seen. No heart tones identified. Yolk sac seen. RIGHT OVARY: complex lesion right ovary measuring 2.3 cm with adjacent simple cysts measuring 2 cm. LEFT OVARY: Ovary contains no mass or significant cystic lesion. MISCELLANEOUS: Small amount free fluid. CONCLUSION: 1. Intrauterine estimated 5 weeks 6 days. No heart tones. Close interval followup rec ommended. 2. Complex cyst right ovary measures 2.3 cm. Followup recommended. Very unlikely to represent an ecto pic . Brian Loredo MD on December 31, 2017 at 19:58 Board Certified Radiologist. This report was verified electronically.
--- NOTE | 2017-12-31 20:24 | PD ---
Physical Exam Time Seen by Provider: 20:22 Narrative Please refer to previous providers documentation for details surrounding the patient's current visit. Data Data Last Documented VS Vital Signs Date Time Temp Pulse Resp B/P (MAP) Pulse Ox O2 Delivery O2 Flow Rate FiO2 12/31/17 16:26 98.4 99 18 115/67 (83) 100 Orders Orders Urinalysis - C+S If Indicated (12/31/17 16:49) Beta Hcg (Quant/Titer) (12/31/17 16:55) Complete Blood Count With Diff (12/31/17 16:55) Comprehensive Metabolic Panel (12/31/17 16:55) Us Pelvis (Ques Pr/Ect)W Trans (12/31/17 ) Calcium Carbonate (Oscal) (12/31/17 20:00) Ed Discharge Order (12/31/17 20:22) Labs Laboratory Tests Test 12/31/17 17:10 White Blood Count 4.8 TH/MM3 Red Blood Count 4.21 MIL/MM3 Hemoglobin 11.9 GM/DL Hematocrit 35.9 % Mean Corpuscular Volume 85.3 FL Mean Corpuscular Hemoglobin 28.4 PG Mean Corpuscular Hemoglobin Concent 33.3 % Red Cell Distribution Width 13.2 % Platelet Count 253 TH/MM3 Mean Platelet Volume 8.2 FL Neutrophils (%) (Auto) 47.2 % Lymphocytes (%) (Auto) 39.7 % Monocytes (%) (Auto) 9.6 % Eosinophils (%) (Auto) 2.9 % Basophils (%) (Auto) 0.6 % Neutrophils # (Auto) 2.3 TH/MM3 Lymphocytes # (Auto) 1.9 TH/MM3 Monocytes # (Auto) 0.5 TH/MM3 Eosinophils # (Auto) 0.1 TH/MM3 Basophils # (Auto) 0.0 TH/MM3 CBC Comment DIFF FINAL Differential Comment Urine Color YELLOW Urine Turbidity CLEAR Urine pH 6.0 Urine Specific [place] 1.021 Urine Protein TRACE mg/dL Urine Glucose (UA) 1000 mg/dL Urine Ketones NEG mg/dL Urine Occult Blood SMALL Urine Nitrite NEG Urine Bilirubin NEG Urine Urobilinogen LESS THAN 2.0 MG/DL Urine Leukocyte Esterase SMALL Urine RBC 7 /hpf Urine WBC 5 /hpf Urine Squamous Epithelial Cells 2 /hpf Urine Bacteria RARE /hpf Urine Mucus FEW /lpf Microscopic Urinalysis Comment CULT NOT INDICATED Blood Urea Nitrogen 10 MG/DL Creatinine 0.64 MG/DL Random Glucose 246 MG/DL Total Protein 6.4 GM/DL Albumin 3.1 GM/DL Calcium Level 7.0 MG/DL Alkaline Phosphatase 74 U/L Aspartate Amino Transf (AST/SGOT) 20 U/L Alanine Aminotransferase (ALT/SGPT) 27 U/L Total Bilirubin 0.2 MG/DL Sodium Level 138 MEQ/L Potassium Level 5.2 MEQ/L Chloride Level 107 MEQ/L Carbon Dioxide Level 21.2 MEQ/L Anion Gap 10 MEQ/L Estimat Glomerular Filtration Rate 139 ML/MIN Protein Corrected Calcium 7.4 MG/DL Human Chorionic Gonadotropin, Quant 6787 MIU/ML [facility] Medical Record Reviewed: Yes Supervised Visit with JUAN: No Narrative Course Patient was signed out to me with ultrasound pending. Patient was found to have hypocalcemia. This was repleted with 1 g of oral calcium here in the emergency department. Ultrasound results Last Impressions Pelvis Ultrasound 12/31/17 0000 Signed Impressions: Service Date/Time: Sunday, December 31, 2017 19:03 - CONCLUSION: 1. Intrauterine estimated 5 weeks 6 days. No heart tones. Close interval followup recommended. 2. Complex cyst right ovary measures 2.3 cm. Followup recommended. Very unlikely to represent an ectopic . Brian Loredo MD Findings are discussed with patient. She agrees to return immediately with acute worsening symptoms. Diagnosis Primary Impression: Early stage of Additional Impression: Abdominal cramping Referrals: [facility] Care Primary Care Physician Patient Instructions: First Trimester (ED), General Instructions Additional Instruction: Repeat beta in 2 days Follow up with [facility] Return to ED with acute worsening of symptoms Med/Other Pt SpecificInfo: No Change to Meds Disposition: 01 DISCHARGE HOME Condition: Stable Sandy Lopez REKHA Dec 31, 2017 20:24
== END 2017-12-31 20:32 | disposition home or self-care (01) ==
LOC: NEPD 16:21
DX: O26.891 Other specified pregnancy related conditions, first trimester (principal); R10.30 Lower abdominal pain, unspecified; O24.911 Unspecified diabetes mellitus in pregnancy, first trimester; Z3A.01 Less than 8 weeks gestation of pregnancy; Z79.4 Long term (current) use of insulin
CPT/HCPCS: 76700; 76817; 80053; 81001; 84702; 85025; 99284

== ENCOUNTER 2018-01-13 18:08 | Emergency (ER) | payer MEDICAID ==
[~2018-01-13] VITALS: Ht 165.1 cm; Wt 52.0 kg
[2018-01-13 18:11] VITALS: BP 115/59; PULSE 109; RESP 18; TEMP 97.7; O2SAT 100
[2018-01-13] MEDS ORDERED: PREN29TA PO (18:21)
--- NOTE | 2018-01-13 18:33 | PD ---
HPI Chief Complaint: Fall Time Seen by Provider: 18:20 Travel History International Travel<30 days: No Contact w/Intl Traveler<30days: No Traveled to known affect area: No History of Present Illness HPI 22-year-old female presents emergency department evaluation of back pain after slipping and falling on a pool deck today. Patient states that she was running with her sister, slipped, fell landing on her tailbone and lumbar spine. Patient says that she has pain, described as mild to moderate in severity, worse with palpation. She denies numbness, tingling or weakness of the extremities. Denies head trauma, headache, neck pain, blurred vision, loss of consciousness. Denies fever, chills, IV drug use, saddle anesthesia, loss of bowel or bladder function. Patient says that she has felt dizzy since the incident, described as lightheaded, worse with standing. Says today was hot and this may have caused her symptoms. LMP November 22. 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 [facility] Past Medical History ADHD: Yes Asthma: Yes Autoimmune Disease: No Blood Disorders: No Anxiety: No Depression: No Heart Rhythm Problems: No Cancer: No Cardiovascular Problems: No Chest Pain: No Cystic Fibrosis: No Diabetes: Yes (pump) Patient Takes Glucophage: No Diminished Hearing: No Gastrointestinal Disorders: No Genitourinary: No Headaches: Yes Hypertension: No Musculoskeletal: Yes (chronic back pain) Neurologic: No Psychiatric: Yes Reproductive: No Immunizations Current: No Migraines: No Seizures: No Sickle Cell Disease: No Sleep Apnea: No Thyroid Disease: No Ulcer: No Tetanus Vaccination: < 5 Years Influenza Vaccination: No ?: LMP: NOVEMBER 22, 2017 : 3 Para: 1 Miscarriage: 1 : 0 Dilation and Curettage (D&C): Yes Past Surgical History Abdominal Surgery: No Appendectomy: No Cardiac Surgery: No Section: Yes Cholecystectomy: No Ear Surgery: No Endocrine Surgery: No Eye Surgery: No Genitourinary Surgery: No Neurologic Surgery: No Oral Surgery: No Pacemaker: No Thoracic Surgery: No Other Surgery: Yes () Social History Alcohol Use: No (OCC) Tobacco Use: No Substance Use: No Allergies-Medications (Allergen,Severity, Reaction): Coded Allergies: acetaminophen (Unverified Allergy, Severe, 01/13/18) ciprofloxacin (Unverified Allergy, Severe, 01/13/18) ketorolac (Unverified Allergy, Severe, 01/13/18) oxycodone (Unverified Allergy, Severe, 01/13/18) shellfish derived (Unverified Allergy, Severe, 01/13/18) Reported Meds & Prescriptions Reported Meds & Active Scripts Active Keflex (Cephalexin) 500 Mg Cap 500 Mg PO Q12H 7 Days Reported Plus Iron 29-1 mg ( Vit-Iron Carbonyl) 29 Mg Iron-1 Mg Tab 1 Tab PO DAILY Humalog Inj (Insulin Human Lispro) 1,000 Unit/10 Ml Vial 1-9 Units SQ ACHS Max dose at bedtime:( )units; sugars< 70,(0)units; sugars 150-199,(1)unit; sugars 200-249,(3)units; sugars 250-299,(5)units; sugars 300-349,(7)units; sugars more than 349,(9)units. Review of Systems Except as stated in HPI: all other systems reviewed are Neg Physical Exam Narrative GENERAL: Well-developed, well-nourished in no apparent distress SKIN: Warm and dry. HEAD: Atraumatic. Normocephalic. EYES: Pupils equal and round. No scleral icterus. No injection or drainage. ENT: No nasal bleeding or discharge. Mucous membranes pink and moist. NECK: Trachea midline. No JVD. No midline tenderness CARDIOVASCULAR: Regular rate and rhythm. RESPIRATORY: No accessory muscle use. Clear to auscultation. Breath sounds equal bilaterally. GASTROINTESTINAL: Abdomen soft, non-tender, nondistended. Normoactive bowel sounds. Mild tenderness palpation to the lower pelvic region without rebound tenderness. BACK: No CVA tenderness. No rash. Point tenderness on palpation of the spine about the L1-L2 region. Mild tenderness to palpation to the coccyx area MUSCULOSKELETAL: Extremities without clubbing, cyanosis, or edema. No obvious deformities. NEUROLOGICAL: Awake and alert. No obvious cranial nerve deficits. Motor grossly within normal limits. Five out of 5 muscle strength in the arms and legs. Normal speech. PSYCHIATRIC: Appropriate mood and affect; insight and judgment normal. Data Data Last Documented VS Vital Signs Date Time Temp Pulse Resp B/P (MAP) Pulse Ox O2 Delivery O2 Flow Rate FiO2 01/13/18 19:48 5/11/18 18:51 91 18 94 18 99 18 01/13/18 18:11 97.7 100 Orders Orders Orthostatic Vital Signs (01/13/18 18:37) Urinalysis - C+S If Indicated (01/13/18 19:03) Urine Culture (01/13/18 19:05) Cephalexin (Keflex) (01/13/18 19:30) Ed Discharge Order (01/13/18 19:34) Labs Laboratory Tests Test 01/13/18 19:05 Urine Color YELLOW Urine Turbidity CLOUDY Urine pH 7.0 Urine Specific [place] 1.015 Urine Protein NEG mg/dL Urine Glucose (UA) 100 mg/dL Urine Ketones 80 OR GREATER mg/dL Urine Occult Blood MOD Urine Nitrite NEG Urine Bilirubin NEG Urine Urobilinogen 0.2 MG/DL Urine Leukocyte Esterase TRACE Urine RBC 0-3 /hpf Urine WBC 9-14 /hpf Urine Squamous Epithelial Cells 0-5 /hpf Urine Amorphous Sediment FEW Urine Bacteria MANY /hpf Microscopic Urinalysis Comment CULTURE INDICATED MDM Medical Decision Making Medical Screen Exam Complete: Yes Emergency Medical Condition: Yes Differential Diagnosis Contusion, lumbago, sciatica, muscle spasms, fracture, cauda equina syndrome Narrative Course 22-year-old female presents emergency department evaluation of back pain after slipping and falling on a pool deck today. Patient states that she was running with her sister, slipped, fell landing on her tailbone and lumbar spine. Patient says that she has pain, described as mild to moderate in severity, worse with palpation. She denies numbness, tingling or weakness of the extremities. Denies fever, chills, IV drug use, saddle anesthesia, loss of bowel or bladder function. Patient says that she has felt dizzy since the incident, described as lightheaded, worse with standing. says today was hot and this may have caused her symptoms. LMP November 22. 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 After evaluation, patient states she has had cramping in her lower pelvic region for the last several days. Denies vaginal bleeding. Says she has had copious white discharge without odor. Denies actual pain, just cramping. Denies fevers or chills. Says she has had some nausea without vomiting for several weeks. Ordered UA for evaluation. Orthostatic vital signs normal. POC US demonstrates IUP with heartbeat appropriate for age, uniform appearance of fluid surrounding fetus. Urinalysis suggestive of a urinary tract infection. Keflex administered in the emergency department. Patient will be prescribed Keflex for outpatient use. I strongly advised her to follow up with her concrete paving supervisor. Patient given prescription for MRI as an outpatient if her back pain worsens or persist. Pt ambulated out of the ER without assistance. Diagnosis Primary Impression: UTI (urinary tract infection) Qualified Codes: N30.00 - Acute cystitis without hematuria Additional Impression: Back contusion Qualified Codes: S20.229A - Contusion of unspecified back wall of thorax, initial encounter Referrals: [employer] Orthopedist Additional Instructions: If your back pain worsens or persists, recommend obtaining the MRI as stated in your prescription. Take all medications as prescribed. He received her first dose of antibiotic today in the emergency department. Start your next dose tomorrow morning. Ensure adequate fluid intake and proper nutrition. Drink plenty of water. Perform light stretches of the lower back and legs, and alternate heat and ice packs. If you develop increased pain, weakness, fever, chills, or bowel or bladder issues, return to the ED for further treatment and evaluation. Follow up with your primary care physician in 2-3 days. Scripts Cephalexin (Keflex) 500 Mg Cap 500 MG PO Q12H for Infection for 7 Days, #14 CAP 0 Refills Prov: Preet Soria MD 01/13/18 Disposition: 01 DISCHARGE HOME Condition: Stable Marija Harman January 13, 2018 18:33
[2018-01-13 18:51] VITALS: BP_SYST 121; BP_SYST 126; BP_SYST 130; BP_DIAS 63; BP_DIAS 67; BP_DIAS 70; RESP 18
[2018-01-13 19:15] LABS: BILIRUBIN, URINE NEG (NEG); BLOOD, URINE MOD (NEG); GLUCOSE,URINE 100 mg/dL (NEG); KETONE, URINE 80 OR GREATER mg/dL (NEG); NITRITE,URINE NEG (NEG); URINE COLOR YELLOW (YELLW/STRAW); URINE LEUKOCYTE ESTERASE TRACE (NEG)
[2018-01-13 19:25] LABS: AMORPHOUS SEDIMENT, URINE FEW; BACTERIA, URINE MANY /hpf; RBC, URINE 0-3 /hpf (0-3); SQUAMOUS EPITHELIAL CELL URINE 0-5 /hpf (0-5)
[2018-01-13] MEDS ORDERED: CEPH-460 PO (19:29)
[2018-01-13] MEDS ORDERED: CEPHALEXIN MONOHYDRATE 500 MG CAP PO ONE (19:30)
== END 2018-01-13 19:48 | disposition home or self-care (01) ==
LOC: PHEFT 18:08
DX: N30.00 Acute cystitis without hematuria (principal); B95.7 Other staphylococcus as the cause of diseases classified elsewhere; S20.229A Contusion of unspecified back wall of thorax, initial encounter; W01.0XXA Fall on same level from slipping, tripping and stumbling without subsequent striking against object, initial encounter; F90.9 Attention-deficit hyperactivity disorder, unspecified type; G89.29 Other chronic pain; M54.9 Dorsalgia, unspecified; J45.909 Unspecified asthma, uncomplicated; E11.9 Type 2 diabetes mellitus without complications
CPT/HCPCS: 81001; 86403; 87077; 87086; 87186; 99283

== ENCOUNTER → 2018-02-22 | Outpatient (CLI) | payer MEDICAID ==
[~2018-02-22] MED LIST changes: +CEPH-460 PO; -LEVEMIR SQ; -MORP1TAB24 PO; -ORPH100T2 PO; +PREN29TA PO
== END ==
LOC: HPND 10:07
PROVIDERS: ATTEND Obstetrics & Gynecology
DX: O24.011 Pre-existing type 1 diabetes mellitus, in pregnancy, first trimester (principal); Z36.82 Encounter for antenatal screening for nuchal translucency
CPT/HCPCS: 76813